=== PATIENT | female | born 1940 | race Hispanic/Latino ===

== ENCOUNTER 2018-03-10 13:54 | Emergency (ER) | payer OTHER ==
[~2018-03-10 13:54] MED LIST: ACEB200 PO; ACET1TAB12 PO; ALEN70TA47 PO; ASPI-1012 PO; ATOR40TA69 PO; CHLO50TA PO; DIGO125T87 PO; EZET10 PO; FAMO20TA8 PO; LEVO500T2 PO; LISI40TA4 PO; NAPR250T4 PO; NITR0.4T SL; OMEP20CA10 PO; SULF1TAB3 PO
[2018-03-10] MEDS ORDERED: ONDANSETRON HCL 4 MG/2 ML VIAL ONE (14:31)
[2018-03-10 14:32] LABS: EOSINOPHILS % (AUTO) 1.3 % (0.0-8.0); HEMATOCRIT 41.3 % (36-48); LYMPHOCYTES % (AUTO) 20.1 % (21.0-51.0); MEAN CORPUSCULAR HEMOGLOBIN 30.4 pg (27.0-33.0); MEAN CORPUSCULAR VOLUME 89.6 fL (79-99); MONOCYTES % (AUTO) 7.7 % (3.0-13.0); NEUTROPHILS % (AUTO) 69.9 % (40.0-77.0); PLATELET COUNT (AUTO) 194 K/uL (130-400); RED BLOOD CELL COUNT(AUTO) 4.62 MIL/uL (4.00-5.50); RED CELL DISTRIBUTION WIDTH 13.5 % (11.0-15.5); WHITE BLOOD COUNT (AUTO) 6.7 K/uL (4.8-10.8)
[2018-03-10 14:45] LABS: CREATININE 1.1 mg/dL (0.5-1.5); POTASSIUM 3.8 mmol/L (3.5-5.1)
[2018-03-10 14:54] LABS: AMYLASE 102 U/L (25-115); LIPASE 209 U/L (114-286)
[2018-03-10 14:57] LABS: B-TYPE NATRIURETIC PEPTIDE 21 pg/mL (0-100)
[2018-03-10 15:00] LABS: ALBUMIN 3.8 g/dL (3.5-5.0); BILIRUBIN,TOTAL 0.5 mg/dL (0.2-1.0); CREATINE KINASE MB 1.1 ng/mL (0.5-3.6); TOTAL PROTEIN, SERUM 7.1 g/dL (6.0-8.3)
== END 2018-03-10 16:50 | disposition home or self-care (01) ==
LOC: EDH 13:54
DX: I48.91 Unspecified atrial fibrillation (principal); I48.92 Unspecified atrial flutter; I25.10 Atherosclerotic heart disease of native coronary artery without angina pectoris; E78.5 Hyperlipidemia, unspecified; I10 Essential (primary) hypertension; Z88.6 Allergy status to analgesic agent; Z88.0 Allergy status to penicillin; Z95.0 Presence of cardiac pacemaker
CPT/HCPCS: 36415; 71045; 80053; 82150; 82550; 82553; 83690; 83880; 84484; 85025; 93005; 96374; 99285; J2405

== ENCOUNTER 2019-05-07 06:27 | Observation (INO) | payer OTHER ==
[~2019-05-07] VITALS: Ht 165.1 cm; Wt 56.2 kg
[~2019-05-07 06:27] MED LIST changes: -ACET1TAB12 PO; +ALEN70TA10 PO; -ALEN70TA47 PO; +CHLO25TA3 PO; -EZET10 PO; +EZET10TA13 PO; -LEVO500T2 PO; +LEVO5TAB13 PO; +LINA5TAB PO; -NAPR250T4 PO; +OMEP-50 PO; -OMEP20CA10 PO; +RANO500T2 PO; -SULF1TAB3 PO
[2019-05-07] MEDS ORDERED: NITROGLYCERIN 1GM/1 INCH PACKET TD ONE (06:31)
[2019-05-07 06:46] LABS: EOSINOPHILS % (AUTO) 1.6 % (0.0-8.0); LYMPHOCYTES % (AUTO) 20.8 % (21.0-51.0); MEAN CORPUSCULAR HEMOGLOBIN 30.9 pg (27.0-33.0); MEAN CORPUSCULAR HGB CONC 33.7 g/dL (32.0-36.0); MEAN CORPUSCULAR VOLUME 91.5 fL (79-99); MONOCYTES % (AUTO) 6.6 % (3.0-13.0); PLATELET COUNT (AUTO) 154 K/uL (130-400); RED BLOOD CELL COUNT(AUTO) 4.48 MIL/uL (4.00-5.50); RED CELL DISTRIBUTION WIDTH 12.9 % (11.0-15.5); WHITE BLOOD COUNT (AUTO) 8.4 K/uL (4.8-10.8)
[2019-05-07 06:56] LABS: POTASSIUM 4.4 mmol/L (3.5-5.1)
[2019-05-07 07:01] LABS: ALBUMIN 3.7 g/dL (3.5-5.0); BILIRUBIN,TOTAL 0.4 mg/dL (0.2-1.0); TOTAL PROTEIN, SERUM 7.3 g/dL (6.0-8.3)
[2019-05-07 07:02] LABS: INR 0.91 (0.85-1.15); PARTIAL THROMBOPLASTIN TIME 24.1 SEC (26.3-35.5); PROTHROMBIN TIME 9.6 SEC (9.6-11.6)
[2019-05-07] MEDS ORDERED: HYDRALAZINE HCL 20 MG/ML VIAL ONE (07:13)
[2019-05-07] MEDS ORDERED: METOPROLOL TARTRATE 25 MG TAB ONE (08:33)
[2019-05-07] MEDS ORDERED: ASPIRIN 325 MG TABLET ONE (08:33)
[2019-05-07 10:00] LABS: CREATINE KINASE, TOTAL 48 U/L (21-232); MYOGLOBIN 28 ng/mL (10-92); TROPONIN I < 0.04 ng/mL (0.00-0.06)
[2019-05-07] MEDS ORDERED: NITROGLYCERIN 0.4 MG SL TAB SL SCH (12:30)
[2019-05-07] MEDS ORDERED: SODIUM CHLORIDE 0.9% 10 ML VIAL IVP PRN (13:00)
[2019-05-07] MEDS ORDERED: ONDANSETRON HCL 4 MG/2 ML VIAL IVP PRN (13:00)
[2019-05-07 13:35] LABS: CREATINE KINASE, TOTAL 49 U/L (21-232); MYOGLOBIN 33 ng/mL (10-92); TROPONIN I < 0.04 ng/mL (0.00-0.06)
--- NOTE | 2019-05-07 14:33 | NUR ---
[facility] Sw met with pt and her Mars Marquez. Pt reports she is still independent of all ADLs, drives, no DME or in home care services. PCP is Dr Mobley and rx is Jonah. Plan [place] Addendum: 05/07/19 at 1442 by DANG HYLTON Amended: Links added.
[2019-05-07 15:35] VITALS: BP 150/64
[2019-05-07] MEDS: DIGOXIN 125 MCG TABLET PO SCH (16:49)
[2019-05-07 19:31] VITALS: BP 158/73
[2019-05-07] MEDS: RANOLAZINE 500 MG TAB.SR.12H PO SCH (20:47)
[2019-05-07] MEDS ORDERED: **HM** LEVOCETIRIZINE 5MG PO SCH (21:00)
[2019-05-07] MEDS ORDERED: ATORVASTATIN CALCIUM 40 MG TABLET PO SCH (21:00)
[2019-05-07 22:35] LABS: APPEARANCE,URINE Clear (CLEAR); BILIRUBIN,URINE Negative (NEGATIVE); COLOR,URINE Yellow (YELLOW); GLUCOSE, URINE (UA) TRACE mg/dL (NEGATIVE); KETONES,URINE Negative (NEGATIVE); LEUKOCYTE ESTERASE ,URINE Trace (NEGATIVE); NITRATE,URINE Negative (NEGATIVE); OCCULT BLOOD,URINE Negative (NEGATIVE); PH,URINE 8.5 (5.0-8.0); PROTEIN,URINE Negative (NEGATIVE)
[2019-05-07 22:52] LABS: BACTERIA,URINE None Seen /HPF (None Seen); RBC,URINE None Seen /HPF (0-1); SQUAMOUS EPITHELIAL CELL,UR Few /HPF (0-2); WBC,URINE None Seen /HPF (0-1)
[2019-05-07 23:28] VITALS: BP 115/59
[2019-05-08 04:00] VITALS: BP 109/52
[2019-05-08 08:00] VITALS: BP 123/81
[2019-05-08] MEDS: RANOLAZINE 500 MG TAB.SR.12H PO SCH (08:18)
[2019-05-08] MEDS ORDERED: ASPIRIN 325 MG TABLET PO SCH (09:00)
[2019-05-08] MEDS ORDERED: CHLORTHALIDONE 50 MG PO SCH (09:00)
[2019-05-08] MEDS ORDERED: EZETIMIBE 10 MG TAB PO SCH (09:00)
[2019-05-08] MEDS ORDERED: PANTOPRAZOLE SODIUM 40 MG TABLET.DR PO SCH (09:00)
[2019-05-08] MEDS ORDERED: LISINOPRIL 40 MG TABLET PO SCH (09:00)
[2019-05-08] MEDS ORDERED: ACEBUTOLOL 200 MG PO SCH (09:00)
[2019-05-08] MEDS ORDERED: FAMOTIDINE 20MG TAB 20 MG TAB PO SCH (09:00)
[2019-05-08] MEDS ORDERED: LINAGLIPTIN 5 MG TABLET PO SCH (09:00)
[2019-05-08] MEDS ORDERED: REGADENOSON 0.4 MG/5 ML PF SYG IVP SCH (10:15)
[2019-05-08 11:15] VITALS: BP 130/68
--- NOTE | 2019-05-08 15:50 | NUR ---
GENERAL MERCHANDISE SALESPERSON DR. REYNOSO IN TO SEE PATIENT AND DISCUSS RESULTS OF LEXISCAN. ORDERS RECEIVED FOR DISCHARGE AND MD ALSO MADE SOME MEDICATION CHANGES. PATIENT ALREADY HAS AN APPOINTMENT NEXT WEEK WITH DR. REYNOSO. NEW PRESCRIPTIONS PLACED IN DISCHARGE PACKET ALONG WITH ALL PRINTED INFORMATION AND MD INSTRUCTIONS. IV REMOVED WITH TIP INTACT. DIRECT PRESSURE APPLIED UNTIL BLEEDING CONTROLLED THEN SITE COVERED WITH GAUZE AND SECURED WITH TAPE. PENDING RIDE HOME.
[2019-05-08] MEDS ORDERED: ATOR20TA65 PO (15:56)
[2019-05-08 16:10] VITALS: BP 139/67
[2019-05-08] MEDS: DIGOXIN 125 MCG TABLET PO SCH (16:20)
[2019-05-14] MEDS ORDERED: ALENDRONATE SODIUM 35 MG TAB PO SCH (06:30)
== END 2019-05-08 17:21 | disposition home or self-care (01) ==
LOC: EDH 06:27 → EDHIP 07:10 → 4BH 15:13
PROVIDERS: ADMIT Internal Medicine Critical Care Medicine; ATTEND Internal Medicine Critical Care Medicine
DX: R07.2 Precordial pain (principal); I10 Essential (primary) hypertension; E11.9 Type 2 diabetes mellitus without complications; E78.5 Hyperlipidemia, unspecified; I48.2 Chronic atrial fibrillation; I25.10 Atherosclerotic heart disease of native coronary artery without angina pectoris; G89.29 Other chronic pain; I42.9 Cardiomyopathy, unspecified; Z95.1 Presence of aortocoronary bypass graft; Z86.73 Personal history of transient ischemic attack (TIA), and cerebral infarction without residual deficits; Z88.0 Allergy status to penicillin; Z88.5 Allergy status to narcotic agent; Z95.0 Presence of cardiac pacemaker
CPT/HCPCS: 36415; 70450; 71045; 78452; 80053; 81001; 82550 ×2; 83874 ×2; 84484 ×3; 85025; 85610; 85730; 93005 ×4; 93017; 96374; 99284; A9500 ×2; G0378 ×34; J0360; J2785

== ENCOUNTER → 2019-06-09 | Outpatient (CLI) | payer OTHER ==
[~2019-06-09] MED LIST changes: +ATOR20TA65 PO; -ATOR40TA69 PO; -CHLO50TA PO
== END | disposition home or self-care (01) ==
LOC: SHCH 07:49
PROVIDERS: ATTEND Internal Medicine Cardiovascular Disease
DX: I73.9 Peripheral vascular disease, unspecified (principal)
CPT/HCPCS: 93925

== ENCOUNTER 2019-08-05 05:30 | Day surgery (SDC) | payer OTHER ==
[2019-07-28 11:20] VITALS: BP 152/76
[2019-07-28 11:31] LABS: BASOPHILS % (AUTO) 0.7 % (0.0-5.0); EOSINOPHILS % (AUTO) 1.4 % (0.0-8.0); LYMPHOCYTES % (AUTO) 18.9 % (21.0-51.0); MEAN CORPUSCULAR HEMOGLOBIN 31.7 pg (27.0-33.0); MEAN CORPUSCULAR HGB CONC 34.4 g/dL (32.0-36.0); MEAN CORPUSCULAR VOLUME 92.3 fL (79-99); MONOCYTES % (AUTO) 8.3 % (3.0-13.0); NEUTROPHILS % (AUTO) 70.7 % (40.0-77.0); NUCLEATED RED BLOOD CELLS 0.1 % (0.0-0.19); PLATELET COUNT (AUTO) 168 K/uL (130-400); RED BLOOD CELL COUNT(AUTO) 4.33 MIL/uL (4.00-5.50); RED CELL DISTRIBUTION WIDTH 13.5 % (11.0-15.5)
[2019-07-28 11:34] LABS: CREATININE 1.1 mg/dL (0.5-1.5); POTASSIUM 3.7 mmol/L (3.5-5.1)
--- NOTE | 2019-07-28 11:50 | NUR ---
EKG MESSAGE LEFT WITH DR. LOZANO ON ABNORMAL EKG, PENDING CALL BACK
--- NOTE | 2019-07-28 12:49 | NUR ---
ekg as per dr. krystyna chávez to proceed with surgery, no orders given on abnormal ekg reported
[~2019-08-05] VITALS: Ht 152.4 cm; Wt 54.7 kg
[2019-08-05] VITALS (16 sets, daily range): BP systolic 125–161; BP diastolic 59–82
[~2019-08-05 05:30] MED LIST changes: +CHLO50TA PO; +ERGO500014 PO
[2019-08-05] MEDS ORDERED: SODIUM CHLORIDE 0.9% 1000ML 1,000 ML IV ONE (06:25)
[2019-08-05] MEDS ORDERED: CEFAZOLIN SODIUM 1 GM VIAL ONE (06:25)
[2019-08-05] MEDS ORDERED: CLINDAMYCIN 900 MG/D5% WATER 50 ML IV ONE (07:04)
[2019-08-05] MEDS ORDERED: LIDOCAINE HCL 2% 20ML ONE (07:22)
--- NOTE | 2019-08-05 07:25 | NUR ---
POTENTIAL FOR INFECTION: NO SHAVING NEEDED TO RT HAND ASSESSED PER HAYLEY DIANA, WIPED WITH ERICK: 2% CHLORHEXIDINE GLUCONATE CLOTH PATIENTS PRE-DOP SKIN PREP PER HAYLEY DIANA.
[2019-08-05] MEDS ORDERED: ONDANSETRON HCL 4 MG/2 ML VIAL ONE (07:36)
[2019-08-05] MEDS ORDERED: DEXAMETHASONE SOD PHOSPHATE 10MG/ML 1ML VIAL ONE (07:36)
[2019-08-05] MEDS ORDERED: PROPOFOL 10 MG/ML 20ML VIAL IV ONE (07:36)
[2019-08-05] MEDS ORDERED: MIDAZOLAM HCL 1 MG/ML 2ML VIAL ONE (07:36)
[2019-08-05] MEDS ORDERED: LIDOCAINE PF 2% 5ML ABBOJECT ONE (07:36)
[2019-08-05] MEDS ORDERED: FENTANYL CITRATE PF 50 MCG/1 ML 2ML VIAL ONE (07:37)
[2019-08-05] MEDS ORDERED: PHENYLEPHRINE HCL 10 MG/ML 1ML VIAL IV ONE (08:04)
--- NOTE | 2019-08-05 09:15 | NUR ---
POST-PROCEDURE RECEIVED FROM PACU S/P RIGHT CTR VIA STRETCHER TO DAY PT 4. AWAKE IN NO ACUTE DISTRESS. CONNECTED TO CONTINUOUS CARDIOPULMONARY MONITORING. DAVID WRAP TO RIGHT HAND CLEAN, DRY, AND INTACT. EDEMA PRESENT TO RIGHT HAND. HAND ELEVATED ON PILLOW. SIDE RAILS UP X2, BED IN LOWEST POSITION, AND CALL LIGHT W/IN REACH.
--- NOTE | 2019-08-05 09:45 | NUR ---
DISCHARGE DAY PT DISCHARGE INSTRUCTIONS, DR. GUY DISCHARGE INSTRUCTIONS, MED REC, AND PT SUMMARY REVIEWED BY MUKESH ALVAREZ IN [facility]. PT AND VERBALIZED UNDERSTANDING. SLING APPLIED TO RIGHT ARM. PT EDUCATED TO KEEP RIGHT ARM ELEVATED TO HELP WITH SWELLING. PT VERBALIZED UNDERSTANDING. OPPORTUNITY GIVEN TO ASK QUESTIONS. QUESTIONS ADDRESSED.
--- NOTE | 2019-08-05 10:05 | NUR ---
DISCHARGE DISCHARGED VIA W/C. AWAKE IN NO ACUTE DISTRESS.
== END 2019-08-05 10:05 | disposition home or self-care (01) ==
LOC: DAH 05:30
PROVIDERS: ATTEND Orthopaedic Surgery
DX: G56.01 Carpal tunnel syndrome, right upper limb (principal); E11.9 Type 2 diabetes mellitus without complications; I10 Essential (primary) hypertension; I25.10 Atherosclerotic heart disease of native coronary artery without angina pectoris; Z88.5 Allergy status to narcotic agent; Z88.0 Allergy status to penicillin; Z79.899 Other long term (current) drug therapy; Z90.49 Acquired absence of other specified parts of digestive tract; Z98.890 Other specified postprocedural states; Z90.710 Acquired absence of both cervix and uterus; Z79.82 Long term (current) use of aspirin; Z82.49 Family history of ischemic heart disease and other diseases of the circulatory system
CPT/HCPCS: 36415; 64721; 80048; 82948 ×2; 85025; 93005; A4215; A4221; A4222; A4223; A4649 ×2; A4663; A4930; A6260; J1100; J2001; J2250; J2370; J2405; J2704; J3010; J3490 ×2; J7030; J0690

== ENCOUNTER → 2019-11-10 | Outpatient (CLI) | payer OTHER ==
[~2019-11-10] MED LIST changes: +DIGO125T71 PO; -DIGO125T87 PO; -OMEP-50 PO; +OMEP20CA12 PO
== END | disposition home or self-care (01) ==
LOC: SHCH 13:01
PROVIDERS: ATTEND Internal Medicine Cardiovascular Disease
DX: R09.89 Other specified symptoms and signs involving the circulatory and respiratory systems (principal)
CPT/HCPCS: 93880

== ENCOUNTER 2020-02-19 15:40 | Emergency (ER) | payer OTHER ==
[2020-02-19] MEDS ORDERED: NITROGLYCERIN 1GM/1 INCH PACKET TD ONE (16:21)
[2020-02-19] MEDS ORDERED: HYOSCYAMINE SULFATE 0.125 MG TAB.SUBL SL ONE (16:45)
[2020-02-19] MEDS ORDERED: ONDANSETRON HCL 4 MG/2 ML VIAL ONE (16:45)
[2020-02-19 16:51] LABS: BASOPHILS % (AUTO) 0.7 % (0.0-5.0); EOSINOPHILS % (AUTO) 1.2 % (0.0-8.0); HEMATOCRIT 36.1 % (36-48); LYMPHOCYTES % (AUTO) 15.7 % (21.0-51.0); MEAN CORPUSCULAR HEMOGLOBIN 30.8 pg (27.0-33.0); MEAN CORPUSCULAR HGB CONC 34.1 g/dL (32.0-36.0); MEAN CORPUSCULAR VOLUME 90.5 fL (79-99); MONOCYTES % (AUTO) 10.2 % (3.0-13.0); NEUTROPHILS % (AUTO) 70.5 % (40.0-77.0); PLATELET COUNT (AUTO) 161 K/uL (130-400); RED BLOOD CELL COUNT(AUTO) 3.99 MIL/uL (4.00-5.50); WHITE BLOOD COUNT (AUTO) 5.8 K/uL (4.8-10.8)
[2020-02-19 17:03] LABS: CREATININE 1.3 mg/dL (0.5-1.5); POTASSIUM 3.6 mmol/L (3.5-5.1)
[2020-02-19 17:05] LABS: INR 0.97 (0.85-1.15); PARTIAL THROMBOPLASTIN TIME 26.9 SEC (26.3-35.5); PROTHROMBIN TIME 10.5 SEC (9.6-11.6)
[2020-02-19 17:07] LABS: ALBUMIN 3.9 g/dL (3.5-5.0); BILIRUBIN,TOTAL 0.5 mg/dL (0.2-1.0); TOTAL PROTEIN, SERUM 6.7 g/dL (6.0-8.3)
[2020-02-19 17:48] LABS: B-TYPE NATRIURETIC PEPTIDE 21 pg/mL (0-100)
== END 2020-02-19 20:39 | disposition home or self-care (01) ==
LOC: EDH 15:40
DX: R07.89 Other chest pain (principal); R10.13 Epigastric pain; R19.7 Diarrhea, unspecified; R00.2 Palpitations; E11.9 Type 2 diabetes mellitus without complications; I10 Essential (primary) hypertension; E78.5 Hyperlipidemia, unspecified; I25.2 Old myocardial infarction; I48.91 Unspecified atrial fibrillation; I25.10 Atherosclerotic heart disease of native coronary artery without angina pectoris; Z88.0 Allergy status to penicillin; Z88.6 Allergy status to analgesic agent; Z95.0 Presence of cardiac pacemaker; Z95.1 Presence of aortocoronary bypass graft; Z90.710 Acquired absence of both cervix and uterus; Z87.891 Personal history of nicotine dependence
CPT/HCPCS: 36415; 71045; 80053; 82550; 83690; 83880; 84484 ×2; 85025; 85610; 85730; 93005 ×3; 96374; 99285; J2405

== ENCOUNTER 2020-06-21 09:12 | Emergency (ER) | payer OTHER ==
[2020-06-21 10:22] LABS: BASOPHILS % (AUTO) 0.6 % (0.0-5.0); EOSINOPHILS % (AUTO) 1.2 % (0.0-8.0); HEMATOCRIT 40.8 % (36-48); LYMPHOCYTES % (AUTO) 14.5 % (21.0-51.0); MEAN CORPUSCULAR HEMOGLOBIN 31.6 pg (27.0-33.0); MEAN CORPUSCULAR HGB CONC 34.6 g/dL (32.0-36.0); MEAN CORPUSCULAR VOLUME 91.5 fL (79-99); MONOCYTES % (AUTO) 8.3 % (3.0-13.0); NEUTROPHILS % (AUTO) 74.6 % (40.0-77.0); PLATELET COUNT (AUTO) 180 K/uL (130-400); RED BLOOD CELL COUNT(AUTO) 4.46 MIL/uL (4.00-5.50); RED CELL DISTRIBUTION WIDTH 12.3 % (11.0-15.5); WHITE BLOOD COUNT (AUTO) 7.7 K/uL (4.8-10.8)
[2020-06-21 10:26] LABS: CREATININE 1.3 mg/dL (0.5-1.5); POTASSIUM 3.4 mmol/L (3.5-5.1)
[2020-06-21 10:28] LABS: INR 0.93 (0.85-1.15); PARTIAL THROMBOPLASTIN TIME 26.1 SEC (26.3-35.5); PROTHROMBIN TIME 10.1 SEC (9.6-11.6)
[2020-06-21 10:32] LABS: ALBUMIN 4.3 g/dL (3.5-5.0); BILIRUBIN,TOTAL 0.6 mg/dL (0.2-1.0); DIGOXIN 1.13 ng/mL (0.50-2.00); TOTAL PROTEIN, SERUM 7.6 g/dL (6.0-8.3)
[2020-06-21] MEDS ORDERED: NITROGLYCERIN 1GM/1 INCH PACKET TD ONE (15:05)
[2020-06-21] MEDS ORDERED: LORAZEPAM 1 MG TABLET ONE (15:05)
[2020-06-21] MEDS ORDERED: ISOSORBIDE MONO 30MG TAB SR PO ONE (15:53)
[2020-06-22] MEDS ORDERED: FENTANYL CITRATE PF 50 MCG/1 ML 2ML VIAL ONE (06:19)
[2020-06-22] MEDS ORDERED: ROCURONIUM 10MG/1ML SYR 10 MG/ML ML ONE (06:19)
[2020-06-22] MEDS ORDERED: LIDOCAINE PF 2% 5ML ABBOJECT ONE (06:19)
[2020-06-22] MEDS ORDERED: MIDAZOLAM HCL 1 MG/ML 2ML VIAL ONE (06:19)
[2020-06-22] MEDS ORDERED: PROPOFOL 10 MG/ML 20ML VIAL IV ONE ×2 (06:19→07:47)
[2020-06-22] MEDS ORDERED: ONDANSETRON HCL 4 MG/2 ML VIAL ONE (06:22)
[2020-06-22] MEDS ORDERED: GLYCOPYRROLATE 1 MG/5 ML SYRINGE ONE (07:23)
[2020-06-22] MEDS ORDERED: NEOSTIGMINE 5MG/5ML SYR IV ONE (07:23)
== END 2020-06-21 16:24 | disposition home or self-care (01) ==
LOC: EDH 09:12
DX: R07.89 Other chest pain (principal); I10 Essential (primary) hypertension; E78.5 Hyperlipidemia, unspecified; E11.9 Type 2 diabetes mellitus without complications; I25.10 Atherosclerotic heart disease of native coronary artery without angina pectoris; I48.91 Unspecified atrial fibrillation; I25.2 Old myocardial infarction; Z88.0 Allergy status to penicillin; Z88.6 Allergy status to analgesic agent; Z95.0 Presence of cardiac pacemaker; Z87.891 Personal history of nicotine dependence; Z90.710 Acquired absence of both cervix and uterus; Z90.49 Acquired absence of other specified parts of digestive tract; Z95.1 Presence of aortocoronary bypass graft
CPT/HCPCS: 36415; 71045; 80053; 80162; 82550; 84484; 85025; 85610; 85730; 93005; J2001; J2250; J2405; J2704; J2710; J3010; J3490

== ENCOUNTER 2020-07-16 05:07 | Observation (INO) | payer OTHER ==
[~2020-07-16] VITALS: Ht 154.9 cm; Wt 55.9 kg
[2020-07-16] VITALS (15 sets, daily range): BP systolic 103–206; BP diastolic 54–110
[~2020-07-16 05:07] MED LIST changes: -ALEN70TA10 PO; +ALEN70TA69 PO
[2020-07-16] MEDS ORDERED: ASPIRIN 325 MG TABLET ONE (05:09)
[2020-07-16 05:25] LABS: HEMATOCRIT 41.2 % (36-48); LYMPHOCYTES % (AUTO) 16.7 % (21.0-51.0); MEAN CORPUSCULAR HEMOGLOBIN 31.1 pg (27.0-33.0); MEAN CORPUSCULAR HGB CONC 34.2 g/dL (32.0-36.0); MEAN CORPUSCULAR VOLUME 90.9 fL (79-99); MONOCYTES % (AUTO) 7.9 % (3.0-13.0); NEUTROPHILS % (AUTO) 71.4 % (40.0-77.0); PLATELET COUNT (AUTO) 216 K/uL (130-400); RED BLOOD CELL COUNT(AUTO) 4.53 MIL/uL (4.00-5.50); RED CELL DISTRIBUTION WIDTH 12.2 % (11.0-15.5); WHITE BLOOD COUNT (AUTO) 8.4 K/uL (4.8-10.8)
[2020-07-16 05:38] LABS: INR 0.91 (0.85-1.15); PARTIAL THROMBOPLASTIN TIME 26.7 SEC (26.3-35.5); PROTHROMBIN TIME 9.9 SEC (9.6-11.6)
[2020-07-16 05:43] LABS: ALBUMIN 4.4 g/dL (3.5-5.0); BILIRUBIN,TOTAL 0.6 mg/dL (0.2-1.0); CREATININE 1.3 mg/dL (0.5-1.5); POTASSIUM 3.5 mmol/L (3.5-5.1); TOTAL PROTEIN, SERUM 7.8 g/dL (6.0-8.3)
[2020-07-16] MEDS ORDERED: NITROGLYCERIN 0.4 MG SL TAB SL ONE (06:21)
[2020-07-16] MEDS ORDERED: HYDRALAZINE HCL 20 MG/ML VIAL IV PRN (07:30)
[2020-07-16] MEDS ORDERED: LACTULOSE 20 GM/30 ML UDCUP PO PRN (07:30)
[2020-07-16] MEDS ORDERED: DEXTROSE 50%-WATER 50 ML DISP.SYRIN IV PRN (07:30)
[2020-07-16] MEDS ORDERED: LABETALOL 20 MG/4 ML DISP.SYRIN IV PRN (07:30)
[2020-07-16] MEDS ORDERED: ACETAMINOPHEN 325 MG TAB PO PRN (07:30)
[2020-07-16] MEDS ORDERED: ONDANSETRON HCL 4 MG/2 ML VIAL IVP PRN (07:30)
[2020-07-16] MEDS: INSULIN HUMULIN R 100 UNIT/ML 3ML SQ SCH ×4 (07:30→20:20)
[2020-07-16] MEDS ORDERED: GLUCAGON 1MG KIT 1 MG ML IM PRN (07:30)
[2020-07-16] MEDS ORDERED: LOPERAMIDE 1 MG/7.5 ML UDCUP PO PRN (07:30)
[2020-07-16] MEDS ORDERED: ENOXAPARIN SODIUM 30 MG/0.3 ML SQ ONE (08:45)
[2020-07-16] MEDS ORDERED: FAMOTIDINE/PF 20 MG/2 ML VIAL IV ONE (08:45)
[2020-07-16] MEDS ORDERED: ASPIRIN 81MG TAB.CHEW PO SCH (09:00)
[2020-07-16] MEDS: FAMOTIDINE 20MG TAB 20 MG TAB PO SCH ×2 (09:00→20:06)
[2020-07-16] MEDS: ENOXAPARIN SODIUM 30 MG/0.3 ML SQ SCH (09:00)
--- NOTE | 2020-07-16 10:00 | NUR ---
ADMISSION RECEIVED PT FROM ER, AMBULATING FROM [facility], GAIT STEADY AND STRONG WITH STAND BY ASSIST, A&OX3, CALM COOPERATIVE AND DOES NOT APPEAR TO BE IN ANY DISTRESS NOR ANY NEURO DEFICITS PRESENT. PT DENIES SOB, NAUSEA BUT DOES C/O INTERMITTENT CHEST PAIN. CALL LIGHT WITHIN REACH, FAMILY AT BEDSIDE.
[2020-07-16] MEDS ORDERED: ACEB400C PO (10:08)
[2020-07-16] MEDS ORDERED: ISOS30TA6 PO (10:08)
[2020-07-16] MEDS ORDERED: ALEN70TA69 PO (10:08)
[2020-07-16] MEDS ORDERED: CHLO25TA3 PO (10:08)
[2020-07-16] MEDS ORDERED: LINA5TAB PO (10:08)
[2020-07-16] MEDS ORDERED: NITR0.4T50 SL (10:08)
[2020-07-16] MEDS ORDERED: RANO500T6 PO (10:08)
[2020-07-16] MEDS ORDERED: EZET10TA48 PO (10:08)
[2020-07-16] MEDS ORDERED: CHLO50TA PO (10:08)
[2020-07-16] MEDS ORDERED: ATOR10 PO (10:08)
[2020-07-16] MEDS ORDERED: DIGO125T71 PO (10:08)
[2020-07-16] MEDS ORDERED: ASPI-1026 PO (10:08)
[2020-07-16] MEDS ORDERED: LEVO5TAB13 PO (10:08)
[2020-07-16] MEDS ORDERED: PANT40TA54 PO (10:08)
[2020-07-16] MEDS ORDERED: LISI40TA4 PO (10:08)
[2020-07-16] MEDS: LISINOPRIL 40 MG TABLET PO SCH (12:45)
[2020-07-16] MEDS: ISOSORBIDE MONO 60 MG TAB.SR PO SCH (12:45)
[2020-07-16] MEDS ORDERED: PHARMACY COMMUNICATION MISC SCH (12:45)
[2020-07-16] MEDS: AMLODIPINE BESYLATE 5 MG TAB PO SCH (12:45)
[2020-07-16] MEDS: EZETIMIBE 10 MG TAB PO SCH (12:45)
[2020-07-16] MEDS: RANOLAZINE 500 MG TAB.SR.12H PO SCH ×2 (12:45→20:06)
[2020-07-16] MEDS ORDERED: DIGOXIN 250 MCG TABLET PO SCH (12:45)
[2020-07-16] MEDS: ACEBUTOLOL 400 MG PO SCH ×2 (13:00→20:06)
[2020-07-16] MEDS: ATORVASTATIN CALCIUM 20 MG TABLET PO SCH (20:06)
[2020-07-17] VITALS (7 sets, daily range): BP systolic 117–145; BP diastolic 59–74
[2020-07-17 05:05] LABS: BASOPHILS % (AUTO) 0.7 % (0.0-5.0); EOSINOPHILS % (AUTO) 1.9 % (0.0-8.0); HEMATOCRIT 38.4 % (36-48); LYMPHOCYTES % (AUTO) 21.5 % (21.0-51.0); MEAN CORPUSCULAR HGB CONC 34.1 g/dL (32.0-36.0); MEAN CORPUSCULAR VOLUME 90.8 fL (79-99); MONOCYTES % (AUTO) 8.6 % (3.0-13.0); NEUTROPHILS % (AUTO) 66.3 % (40.0-77.0); PLATELET COUNT (AUTO) 211 K/uL (130-400); RED BLOOD CELL COUNT(AUTO) 4.23 MIL/uL (4.00-5.50); RED CELL DISTRIBUTION WIDTH 12.4 % (11.0-15.5); WHITE BLOOD COUNT (AUTO) 6.8 K/uL (4.8-10.8)
[2020-07-17 05:18] LABS: ALBUMIN 3.8 g/dL (3.5-5.0); BILIRUBIN,TOTAL 0.6 mg/dL (0.2-1.0); CREATININE 1.3 mg/dL (0.5-1.5); MAGNESIUM 1.7 mg/dL (1.80-2.40); PHOSPHORUS 3.9 mg/dL (2.5-4.9); POTASSIUM 3.4 mmol/L (3.5-5.1); TOTAL PROTEIN, SERUM 7.1 g/dL (6.0-8.3)
[2020-07-17] MEDS ORDERED: CHLORTHALIDONE 50 MG PO SCH (06:30)
[2020-07-17] MEDS: INSULIN HUMULIN R 100 UNIT/ML 3ML SQ SCH ×4 (06:34→21:00)
[2020-07-17] MEDS: MAGNESIUM 2GM PREMIX 50ML 50 ML IV PRN (06:42)
--- NOTE | 2020-07-17 08:00 | NUR ---
PT AAO X3 REVIEW PLAN OF CARE ,DENIES ANY CHEST PAIN , NPO PENDING A STRESS TEST. REVIEW FALL RISK , AND CALL LIGHT IN REACH, ,
[2020-07-17] MEDS: AMLODIPINE BESYLATE 5 MG TAB PO SCH (08:24)
[2020-07-17] MEDS: RANOLAZINE 500 MG TAB.SR.12H PO SCH ×2 (08:24→21:23)
[2020-07-17] MEDS: FAMOTIDINE 20MG TAB 20 MG TAB PO SCH ×2 (08:24→21:23)
[2020-07-17] MEDS: ASPIRIN 325MG EC TAB 325 MG TABLET.DR PO SCH (08:24)
[2020-07-17] MEDS: LISINOPRIL 40 MG TABLET PO SCH (08:24)
[2020-07-17] MEDS: DIGOXIN 125 MCG TABLET PO SCH (08:24)
[2020-07-17] MEDS: EZETIMIBE 10 MG TAB PO SCH (08:24)
[2020-07-17] MEDS: ISOSORBIDE MONO 60 MG TAB.SR PO SCH (08:25)
[2020-07-17] MEDS ORDERED: ASPIRIN 81MG TAB.CHEW PO SCH (09:00)
[2020-07-17] MEDS: ACEBUTOLOL 400 MG PO SCH ×2 (09:00→21:00)
--- NOTE | 2020-07-17 10:00 | NUR ---
STAFF HERE TO TAKE PT FOR STRESS TEST .
[2020-07-17] MEDS ORDERED: REGADENOSON 0.4 MG/5 ML PF SYG IVP SCH (10:30)
[2020-07-17] MEDS ORDERED: LIDOCAINE HCL-MPF 1% 2ML VIAL IV PRN (10:45)
[2020-07-17] MEDS ORDERED: POTASSIUM CHLORIDE 20MEQ/100ML 100 ML IV PRN (10:45)
[2020-07-17] MEDS ORDERED: POTASSIUM CHLORIDE 10% ELIXIR 20 MEQ/15 ML UDCUP PO PRN (10:45)
[2020-07-17] MEDS: ENOXAPARIN SODIUM 30 MG/0.3 ML SQ SCH (11:21)
[2020-07-17] MEDS: POTASSIUM CHLORIDE 20 MEQ ERTAB PO PRN ×3 (11:22→19:26)
--- NOTE | 2020-07-17 12:00 | NUR ---
PT . DOWN STAIRS FOR A STRESS TEST . Addendum: 07/17/20 at 1430 by ZAC OLMSTEAD RN RN Amended: Links added.
--- NOTE | 2020-07-17 14:54 | NUR ---
PT BACK FROM STRESS TEST . ORDER . DIET FOR PT. DENIES ANY CHEST PAIN. AND CALL LIGHT IN REACH. .
--- NOTE | 2020-07-17 20:13 | NUR ---
LASHONDAD CARLOS [place] np re orders to okay to dc from cardiology,pt states she wants to leave in am.
--- NOTE | 2020-07-17 20:15 | NUR ---
TURNING AND BEADING MACHINE OPERATOR S Ambar TURNING AND BEADING MACHINE OPERATOR called back,informed re Dr Jose Luis fermin,he said he's not planning to discharge patient tonight.
[2020-07-17] MEDS: ATORVASTATIN CALCIUM 20 MG TABLET PO SCH (21:23)
[2020-07-18 04:03] VITALS: BP 122/64
[2020-07-18 05:13] LABS: MAGNESIUM 1.9 mg/dL (1.80-2.40)
[2020-07-18] MEDS: INSULIN HUMULIN R 100 UNIT/ML 3ML SQ SCH ×2 (06:00→11:26)
[2020-07-18] MEDS: MAGNESIUM 2GM PREMIX 50ML 50 ML IV PRN (06:03)
[2020-07-18 08:00] VITALS: BP 129/62
[2020-07-18] MEDS ORDERED: **HM** CHLORTHALIDONE 25MG PO SCH (09:00)
[2020-07-18] MEDS: ENOXAPARIN SODIUM 30 MG/0.3 ML SQ SCH (09:20)
[2020-07-18] MEDS: RANOLAZINE 500 MG TAB.SR.12H PO SCH (09:21)
[2020-07-18] MEDS: ISOSORBIDE MONO 60 MG TAB.SR PO SCH (09:21)
[2020-07-18] MEDS: EZETIMIBE 10 MG TAB PO SCH (09:21)
[2020-07-18] MEDS: DIGOXIN 125 MCG TABLET PO SCH (09:21)
[2020-07-18] MEDS: ASPIRIN 325MG EC TAB 325 MG TABLET.DR PO SCH (09:22)
[2020-07-18] MEDS: LISINOPRIL 40 MG TABLET PO SCH (09:22)
[2020-07-18] MEDS: FAMOTIDINE 20MG TAB 20 MG TAB PO SCH (09:22)
[2020-07-18] MEDS: AMLODIPINE BESYLATE 5 MG TAB PO SCH (09:22)
[2020-07-18] MEDS: ACEBUTOLOL 400 MG PO SCH (09:32)
[2020-07-18 11:52] VITALS: BP 146/80
[2020-08-06] MEDS ORDERED: LOSA100T58 PO (10:43)
[2020-08-06] MEDS ORDERED: DIGO125T71 PO (10:44)
[2020-08-08] MEDS ORDERED: AMLO5TAB4 PO (14:47)
[2020-08-08] MEDS ORDERED: SODI100037 PO (14:47)
[2020-08-12] MEDS ORDERED: NITR100C4 PO (12:35)
== END 2020-07-18 15:00 | disposition home or self-care (01) ==
LOC: EDH 05:07 → EDHIP 07:23 → 4BH 09:29
PROVIDERS: ADMIT Internal Medicine Pulmonary Disease; ATTEND Internal Medicine Pulmonary Disease
DX: I16.1 Hypertensive emergency (principal); I25.119 Atherosclerotic heart disease of native coronary artery with unspecified angina pectoris; I25.5 Ischemic cardiomyopathy; I48.0 Paroxysmal atrial fibrillation; E78.5 Hyperlipidemia, unspecified; Z90.49 Acquired absence of other specified parts of digestive tract; Z90.710 Acquired absence of both cervix and uterus; Z95.0 Presence of cardiac pacemaker; Z88.0 Allergy status to penicillin; Z88.5 Allergy status to narcotic agent; Z79.82 Long term (current) use of aspirin; Z79.899 Other long term (current) drug therapy; Z95.1 Presence of aortocoronary bypass graft
CPT/HCPCS: 36415 ×3; 71045 ×2; 78452; 80053 ×2; 80162; 82550 ×4; 82948 ×6; 83735 ×2; 83880; 84100; 84132; 84484 ×4; 85025 ×2; 85610; 85730; 93005; 93017; 96365; 96366 ×2; 96372 ×2; 99285; A9500 ×2; G0378 ×18; J1650 ×3; J2785; J3475 ×2; J3490; 96374

== ENCOUNTER → 2020-12-22 | Outpatient (CLI) | payer OTHER ==
[~2020-12-22] MED LIST changes: -ACEB200 PO; +ACEB400C PO; -ALEN70TA69 PO; +ALEN70TA80 PO; +AMLO5TAB4 PO; -ASPI-1012 PO; +ASPI-1026 PO; +ATOR10 PO; -ATOR20TA65 PO; -DIGO125T71 PO; -ERGO500014 PO; -EZET10TA13 PO; +EZET10TA48 PO; -FAMO20TA8 PO; +IBUP-2077 PO; +ISOS30TA92 PO; +LEVO500T89 PO; -LISI40TA4 PO; +LOSA100T58 PO; -NITR0.4T SL; +NITR0.4T50 SL; -OMEP20CA12 PO; +PANT40TA54 PO; -RANO500T2 PO; +RANO500T6 PO; +SODI100037 PO
== END | disposition home or self-care (01) ==
LOC: RAH 12:11
PROVIDERS: ATTEND Family Medicine
DX: M19.041 Primary osteoarthritis, right hand (principal); L03.011 Cellulitis of right finger; M79.89 Other specified soft tissue disorders
CPT/HCPCS: 73200

== ENCOUNTER → 2021-04-11 | Outpatient (CLI) | payer OTHER | END | disposition home or self-care (01) | LOC: SHCH 09:45 | PROVIDERS: ATTEND Internal Medicine Cardiovascular Disease | DX: I70.219 Atherosclerosis of native arteries of extremities with intermittent claudication, unspecified extremity (principal) | CPT/HCPCS: 93925 ==

== ENCOUNTER → 2021-04-23 | Outpatient (CLI) | payer OTHER | END | disposition home or self-care (01) | LOC: RAH 07:35 | PROVIDERS: ATTEND Internal Medicine Cardiovascular Disease | DX: I70.8 Atherosclerosis of other arteries (principal); Q27.1 Congenital renal artery stenosis | CPT/HCPCS: 76770; 93975 ==

== ENCOUNTER 2022-05-01 11:26 | Observation (INO) | payer OTHER ==
[~2022-05-01] VITALS: Ht 154.9 cm; Wt 64.7 kg
[~2022-05-01 11:26] MED LIST changes: +LEVO-70 PO; -LEVO500T89 PO
[2022-05-01 11:48] LABS: HEMATOCRIT 40.8 % (36-48); MEAN CORPUSCULAR HGB CONC 33.6 g/dL (32.0-36.0); MEAN CORPUSCULAR VOLUME 92.3 fL (79-99); PLATELET COUNT (AUTO) 183 K/uL (130-400); RED BLOOD CELL COUNT(AUTO) 4.42 MIL/uL (4.00-5.50); RED CELL DISTRIBUTION WIDTH 13.7 % (11.0-15.5); WHITE BLOOD COUNT (AUTO) 7.7 K/uL (4.8-10.8)
[2022-05-01] MEDS ORDERED: 0.9% NACL 250ML 250 ML IV ONE (12:00)
[2022-05-01 12:05] LABS: CREATININE 1.2 mg/dL (0.5-1.5); POTASSIUM 4.2 mmol/L (3.5-5.1)
[2022-05-01 12:13] LABS: B-TYPE NATRIURETIC PEPTIDE 89 pg/mL (0-100)
[2022-05-01 12:15] LABS: ALBUMIN 4.5 g/dL (3.5-5.0); TOTAL PROTEIN, SERUM 7.9 g/dL (6.0-8.3)
[2022-05-01] MEDS ORDERED: GLUCAGON 1MG KIT 1 MG ML IM PRN (12:30)
[2022-05-01 12:36] LABS: EOSINOPHILS % (MANUAL) 1 % (1-6); LYMPHOCYTES % (MANUAL) 20 % (22-44); MONOCYTES % (MANUAL) 4 % (2-9); REACTIVE LYMPHOCYTES 7 % (0-0); SEGMENTED NEUTROPHILS % 68 % (40-70)
[2022-05-01 12:37] LABS: MAN.DIFF COMMENT-IMPRESSION MANUAL DIFFERENTIAL
[2022-05-01] MEDS: DEXTROSE 50%-WATER 50 ML DISP.SYRIN IV PRN ×3 (12:41→17:17)
[2022-05-01] MEDS ORDERED: ACETAMINOPHEN 325 MG TAB PO PRN (16:30)
[2022-05-01] MEDS ORDERED: DEXTROSE 10%-WATER 1,000 ML IV SCH (16:30)
[2022-05-01] MEDS ORDERED: LABETALOL 20MG SYG IV PRN (16:30)
[2022-05-01] MEDS ORDERED: ONDANSETRON 4MG INJ IVP PRN (16:30)
[2022-05-01] MEDS ORDERED: LACTULOSE 20 GM/30 ML UDCUP PO PRN (16:30)
[2022-05-01] MEDS ORDERED: ALBUTEROL 0.083% 2.5 MG/3 ML INH IH PRN (16:30)
[2022-05-01] MEDS ORDERED: HYDRALAZINE 20MG/ML VIAL IV PRN (16:30)
[2022-05-01 16:59] LABS: APPEARANCE,URINE CLEAR (CLEAR); BILIRUBIN,URINE NEGATIVE (NEGATIVE); COLOR,URINE YELLOW (YELLOW); GLUCOSE, URINE (UA) 250 mg/dL (NEGATIVE); KETONES,URINE NEGATIVE (NEGATIVE); LEUKOCYTE ESTERASE ,URINE MODERATE (NEGATIVE); NITRATE,URINE NEGATIVE (NEGATIVE); OCCULT BLOOD,URINE NEGATIVE (NEGATIVE); PROTEIN,URINE NEGATIVE (NEGATIVE); UROBILINOGEN,URINE 0.2 mg/dL (0.2-1.0)
[2022-05-01 17:09] LABS: BACTERIA,URINE Rare /HPF (None Seen); RBC,URINE 0-1 /HPF (0-1)
[2022-05-01 17:10] LABS: SQUAMOUS EPITHELIAL CELL,UR Few /HPF (0-2)
[2022-05-01] MEDS: DEXTROSE 5 % AND 0.9 % NACL 1,000 ML IV SCH (18:09)
[2022-05-01] MEDS ORDERED: LEVO5TAB29 PO (20:19)
[2022-05-01] MEDS ORDERED: FURO20TA4 PO (20:19)
[2022-05-01] MEDS ORDERED: PANT40TA54 PO (20:19)
[2022-05-01] MEDS ORDERED: ATOR10 PO (20:19)
[2022-05-01] MEDS ORDERED: ACEB400C PO (20:19)
[2022-05-01] MEDS ORDERED: RANO500T6 PO (20:19)
[2022-05-01] MEDS ORDERED: ISOS30TA92 PO (20:19)
[2022-05-01] MEDS ORDERED: LOSA100T58 PO (20:19)
[2022-05-01] MEDS ORDERED: NITR0.4T50 SL (20:19)
[2022-05-01] MEDS ORDERED: LINA5TAB PO (20:19)
[2022-05-01] MEDS ORDERED: EZET10TA48 PO (20:19)
[2022-05-01] MEDS ORDERED: AMLO2.5T4 PO (20:19)
[2022-05-01 20:50] VITALS: BP 116/84
[2022-05-01 23:51] VITALS: BP 139/64
[2022-05-02 04:00] VITALS: BP 137/64
[2022-05-02 04:56] LABS: BASOPHILS % (AUTO) 0.6 % (0.0-5.0); EOSINOPHILS % (AUTO) 1.5 % (0.0-8.0); HEMATOCRIT 37.3 % (36-48); LYMPHOCYTES % (AUTO) 18.2 % (21.0-51.0); MEAN CORPUSCULAR HEMOGLOBIN 30.8 pg (27.0-33.0); MEAN CORPUSCULAR VOLUME 93.3 fL (79-99); NEUTROPHILS % (AUTO) 68.1 % (40.0-77.0); PLATELET COUNT (AUTO) 153 K/uL (130-400); RED CELL DISTRIBUTION WIDTH 13.9 % (11.0-15.5); WHITE BLOOD COUNT (AUTO) 7.2 K/uL (4.8-10.8)
[2022-05-02 05:19] LABS: CREATININE 0.9 mg/dL (0.5-1.5); MAGNESIUM 2.1 mg/dL (1.80-2.40); PHOSPHORUS 2.7 mg/dL (2.5-4.9); POTASSIUM 4.1 mmol/L (3.5-5.1); THYROID STIMULATING HORMONE 2.5 uIU/mL (0.36-3.74)
[2022-05-02] MEDS: DEXTROSE 5 % AND 0.9 % NACL 1,000 ML IV SCH (05:30)
[2022-05-02 07:16] VITALS: BP 151/60
[2022-05-02] MEDS ORDERED: LEVOFLOXACIN 500 MG/D5W 100 ML 100 ML IV SCH (08:00)
[2022-05-02] MEDS: PANTOPRAZOLE 40 MG TAB DR PO SCH (08:25)
[2022-05-02] MEDS: ENOXAPARIN SODIUM 30 MG/0.3 ML SQ SCH (08:26)
[2022-05-02 11:51] VITALS: BP 145/68
[2022-05-02 16:00] VITALS: BP 149/70
[2022-05-02 20:00] VITALS: BP 150/71
[2022-05-02] MEDS: RANOLAZINE 500 MG TAB.SR.12H PO SCH (20:40)
[2022-05-02] MEDS: ACEBUTOLOL HCL 400 MG PO SCH (20:49)
[2022-05-02] MEDS ORDERED: ATORVASTATIN 20 MG TABLET PO SCH (21:00)
[2022-05-02] MEDS ORDERED: CETIRIZINE HCL 5 MG TABLET PO SCH (21:00)
[2022-05-03 00:37] VITALS: BP 159/64
[2022-05-03 04:47] VITALS: BP 134/62
[2022-05-03 05:20] LABS: BASOPHILS % (AUTO) 0.7 % (0.0-5.0); EOSINOPHILS % (AUTO) 2.9 % (0.0-8.0); HEMATOCRIT 37.2 % (36-48); LYMPHOCYTES % (AUTO) 20.3 % (21.0-51.0); MEAN CORPUSCULAR HEMOGLOBIN 30.8 pg (27.0-33.0); MEAN CORPUSCULAR HGB CONC 33.1 g/dL (32.0-36.0); MONOCYTES % (AUTO) 11.2 % (3.0-13.0); NEUTROPHILS % (AUTO) 63.9 % (40.0-77.0); PLATELET COUNT (AUTO) 149 K/uL (130-400)
[2022-05-03 05:41] LABS: ALBUMIN 3.3 g/dL (3.5-5.0); CREATININE 1.1 mg/dL (0.5-1.5); POTASSIUM 4.2 mmol/L (3.5-5.1); TOTAL PROTEIN, SERUM 6.2 g/dL (6.0-8.3)
[2022-05-03 07:15] VITALS: BP 132/60
[2022-05-03] MEDS ORDERED: LEVOFLOXACIN 250 MG/D5W 50ML 50 ML IVPB SCH (09:00)
[2022-05-03] MEDS ORDERED: ISOSORBIDE MONO 30MG SR TAB PO SCH (09:00)
[2022-05-03] MEDS ORDERED: EZETIMIBE 10 MG TAB PO SCH (09:00)
[2022-05-03] MEDS ORDERED: AMLODIPINE 2.5 MG TAB PO SCH (09:00)
[2022-05-03] MEDS ORDERED: FUROSEMIDE 20 MG TABLET PO SCH (09:00)
[2022-05-03] MEDS ORDERED: LOSARTAN 100 MG TABLET PO SCH (09:00)
[2022-05-03] MEDS: ACEBUTOLOL HCL 400 MG PO SCH (09:00)
[2022-05-03] MEDS: PANTOPRAZOLE 40 MG TAB DR PO SCH (09:29)
[2022-05-03] MEDS: RANOLAZINE 500 MG TAB.SR.12H PO SCH (09:31)
[2022-05-03] MEDS: ENOXAPARIN SODIUM 30 MG/0.3 ML SQ SCH (09:32)
[2022-05-03] MEDS ORDERED: LEVO-70 PO (11:12)
[2022-05-03 12:10] VITALS: BP 133/90
== END 2022-05-03 15:15 | disposition home or self-care (01) ==
LOC: EDH 11:26 → EDHIP 16:05 → 3BH 20:47
PROVIDERS: ADMIT Internal Medicine Critical Care Medicine; ATTEND Internal Medicine Critical Care Medicine
DX: T50.901A Poisoning by unspecified drugs, medicaments and biological substances, accidental (unintentional), initial encounter (principal); E11.65 Type 2 diabetes mellitus with hyperglycemia; I11.0 Hypertensive heart disease with heart failure; I50.9 Heart failure, unspecified; N39.0 Urinary tract infection, site not specified; I25.10 Atherosclerotic heart disease of native coronary artery without angina pectoris; M81.0 Age-related osteoporosis without current pathological fracture; K21.9 Gastro-esophageal reflux disease without esophagitis; E78.00 Pure hypercholesterolemia, unspecified; E78.5 Hyperlipidemia, unspecified; Z79.84 Long term (current) use of oral hypoglycemic drugs; Z88.0 Allergy status to penicillin; Z90.710 Acquired absence of both cervix and uterus; Z95.1 Presence of aortocoronary bypass graft; Z95.5 Presence of coronary angioplasty implant and graft; Z79.899 Other long term (current) drug therapy
CPT/HCPCS: 96376; 96361 ×2; 96375; 99285; 82550; 84484; 80053 ×2; 83880; 85025 ×3; 87088; 82948 ×34; 83605; 81001; 36415 ×3; 71045; 93005; 96372 ×2; 96365; 96366; 84443; 83735; 84100; 80048; G0378 ×47; J7070 ×4; J7042; J1956 ×2; J1650 ×2; J3490

== ENCOUNTER 2022-05-08 15:29 | Observation (INO) | payer OTHER ==
[~2022-05-08] VITALS: Ht 154.9 cm; Wt 63.3 kg
[~2022-05-08 15:29] MED LIST changes: -ALEN70TA80 PO; +AMLO2.5T4 PO; -AMLO5TAB4 PO; -ASPI-1026 PO; -CHLO25TA3 PO; -CHLO50TA PO; +FURO20TA4 PO; -IBUP-2077 PO; -LEVO5TAB13 PO; +LEVO5TAB29 PO; -LINA5TAB PO; -SODI100037 PO
[2022-05-08 15:49] LABS: BASOPHILS % (AUTO) 0.6 % (0.0-5.0); EOSINOPHILS % (AUTO) 0.4 % (0.0-8.0); HEMATOCRIT 39.5 % (36-48); LYMPHOCYTES % (AUTO) 14.1 % (21.0-51.0); MEAN CORPUSCULAR HEMOGLOBIN 30.6 pg (27.0-33.0); MEAN CORPUSCULAR HGB CONC 33.4 g/dL (32.0-36.0); MEAN CORPUSCULAR VOLUME 91.4 fL (79-99); NEUTROPHILS % (AUTO) 75.4 % (40.0-77.0); PLATELET COUNT (AUTO) 179 K/uL (130-400); RED BLOOD CELL COUNT(AUTO) 4.32 MIL/uL (4.00-5.50); RED CELL DISTRIBUTION WIDTH 13.9 % (11.0-15.5); WHITE BLOOD COUNT (AUTO) 7.9 K/uL (4.8-10.8)
[2022-05-08 16:03] LABS: INR 0.94 (0.85-1.15); PROTHROMBIN TIME 10.3 SEC (9.6-11.6)
[2022-05-08 16:05] LABS: PARTIAL THROMBOPLASTIN TIME 24.8 SEC (26.3-35.5)
[2022-05-08 16:06] LABS: CREATININE 1.5 mg/dL (0.5-1.5); POTASSIUM 3.7 mmol/L (3.5-5.1)
[2022-05-08 16:08] LABS: B-TYPE NATRIURETIC PEPTIDE 252 pg/mL (0-100)
[2022-05-08 16:11] LABS: ALBUMIN 4.2 g/dL (3.5-5.0); MAGNESIUM 2.1 mg/dL (1.80-2.40); TOTAL PROTEIN, SERUM 7.6 g/dL (6.0-8.3)
[2022-05-08] MEDS ORDERED: LINA5TAB PO (16:23)
[2022-05-08] MEDS ORDERED: FOLI0.8T22 PO (16:25)
[2022-05-08] MEDS ORDERED: ASPI-1026 PO (16:28)
[2022-05-08] MEDS ORDERED: AMLO-257 PO (16:29)
[2022-05-08] MEDS ORDERED: ALEN70TA80 PO (16:31)
[2022-05-08] MEDS ORDERED: MORPHINE 2 MG SYG IVP PRN (17:30)
[2022-05-08] MEDS ORDERED: ACETAMINOPHEN 325 MG TAB PO PRN (17:30)
[2022-05-08] MEDS ORDERED: HYDRALAZINE 20MG/ML VIAL IV PRN (17:30)
[2022-05-08] MEDS ORDERED: ONDANSETRON 4MG INJ IVP PRN (17:30)
[2022-05-08] MEDS ORDERED: CLONIDINE HCL 0.1 MG TABLET PO PRN (17:30)
[2022-05-08] MEDS ORDERED: LACTULOSE 20 GM/30 ML UDCUP PO PRN (17:30)
[2022-05-08] MEDS ORDERED: ACETAMINOPHEN 650 MG SUPPOSITORY RC PRN (17:30)
[2022-05-08] MEDS ORDERED: ASPIRIN 325MG TAB PO ONE (17:30)
[2022-05-08] MEDS: 0.9%NACL 1000ML 1,000 ML IV SCH (17:53)
[2022-05-08 19:36] VITALS: BP 143/72
[2022-05-08 19:39] VITALS: BP 147/85
[2022-05-08 19:44] VITALS: BP 151/79
[2022-05-08 20:33] LABS: APPEARANCE,URINE CLEAR (CLEAR); BILIRUBIN,URINE NEGATIVE (NEGATIVE); COLOR,URINE YELLOW (YELLOW); GLUCOSE, URINE (UA) NEGATIVE (NEGATIVE); KETONES,URINE NEGATIVE (NEGATIVE); LEUKOCYTE ESTERASE ,URINE NEGATIVE (NEGATIVE); NITRATE,URINE NEGATIVE (NEGATIVE); OCCULT BLOOD,URINE NEGATIVE (NEGATIVE); PROTEIN,URINE NEGATIVE (NEGATIVE); UROBILINOGEN,URINE 0.2 mg/dL (0.2-1.0)
[2022-05-08] MEDS: INSULIN HUMULIN R 100 UNIT/ML 3ML SQ SCH (21:00)
[2022-05-09] VITALS (10 sets, daily range): BP systolic 127–178; BP diastolic 50–76
[2022-05-09 05:18] LABS: BASOPHILS % (AUTO) 0.6 % (0.0-5.0); EOSINOPHILS % (AUTO) 0.6 % (0.0-8.0); LYMPHOCYTES % (AUTO) 20.6 % (21.0-51.0); MEAN CORPUSCULAR HEMOGLOBIN 30.4 pg (27.0-33.0); MEAN CORPUSCULAR HGB CONC 33.2 g/dL (32.0-36.0); MEAN CORPUSCULAR VOLUME 91.6 fL (79-99); MONOCYTES % (AUTO) 8.3 % (3.0-13.0); NEUTROPHILS % (AUTO) 68.6 % (40.0-77.0); PLATELET COUNT (AUTO) 154 K/uL (130-400); RED BLOOD CELL COUNT(AUTO) 4.04 MIL/uL (4.00-5.50); RED CELL DISTRIBUTION WIDTH 13.9 % (11.0-15.5); WHITE BLOOD COUNT (AUTO) 6.3 K/uL (4.8-10.8)
[2022-05-09 05:58] LABS: CREATININE 1.1 mg/dL (0.5-1.5); MAGNESIUM 2.2 mg/dL (1.80-2.40); PHOSPHORUS 3.8 mg/dL (2.5-4.9); POTASSIUM 3.8 mmol/L (3.5-5.1); THYROID STIMULATING HORMONE 1.27 uIU/mL (0.36-3.74)
[2022-05-09] MEDS: INSULIN HUMULIN R 100 UNIT/ML 3ML SQ SCH ×4 (07:30→20:18)
[2022-05-09] MEDS: POLYETHYLENE GLYCOL 3350 17 GM POWD.PACK PO SCH ×2 (08:13→08:22)
[2022-05-09] MEDS: PANTOPRAZOLE 40 MG TAB DR PO SCH (08:13)
[2022-05-09] MEDS: ASPIRIN 81MG CHEW TAB PO SCH (08:13)
[2022-05-09] MEDS: ENOXAPARIN SODIUM 40 MG/0.4 ML SYRINGE SQ SCH (08:14)
[2022-05-09 09:05] LABS: CREATININE 1.1 mg/dL (0.5-1.5); POTASSIUM 3.8 mmol/L (3.5-5.1)
[2022-05-09] MEDS ORDERED: REGADENOSON 0.4 MG/5 ML PF SYG IVP SCH (12:00)
[2022-05-09] MEDS ORDERED: Vitamin B Complex/Vit C/Folic Acid PO SCH (12:47)
[2022-05-09] MEDS ORDERED: NITROGLYCERIN 0.4 MG SL TAB SL SCH (13:00)
[2022-05-09] MEDS: 0.9%NACL 1000ML 1,000 ML IV SCH (13:30)
[2022-05-09] MEDS ORDERED: IOHEXOL 350 MG/ML 100ML INFUS..BTL IV ONE (13:44)
[2022-05-09] MEDS: RANOLAZINE 500 MG TAB.SR.12H PO SCH (20:17)
[2022-05-09] MEDS ORDERED: ATORVASTATIN 10 MG TABLET PO SCH (21:00)
[2022-05-09] MEDS ORDERED: LEVOCETIRIZINE DIHYDROCHLORIDE 5 MG PO SCH (21:00)
[2022-05-09] MEDS: ACEBUTOLOL HCL 400 MG PO SCH (21:00)
[2022-05-09] MEDS ORDERED: NON-FORMULARY MEDICATION 1 EACH (Levocetirizine Dihydrochloride (Xyzal) 5 MG) PO SCH (21:00)
[2022-05-10 03:51] VITALS: BP 172/73
[2022-05-10 03:56] LABS: HEMATOCRIT 35.6 % (36-48); MEAN CORPUSCULAR HEMOGLOBIN 30.7 pg (27.0-33.0); MEAN CORPUSCULAR HGB CONC 33.4 g/dL (32.0-36.0); RED BLOOD CELL COUNT(AUTO) 3.87 MIL/uL (4.00-5.50); RED CELL DISTRIBUTION WIDTH 14.1 % (11.0-15.5); WHITE BLOOD COUNT (AUTO) 6.1 K/uL (4.8-10.8)
[2022-05-10 04:19] LABS: CREATININE 1.1 mg/dL (0.5-1.5); PHOSPHORUS 3.7 mg/dL (2.5-4.9); POTASSIUM 3.5 mmol/L (3.5-5.1)
[2022-05-10] MEDS ORDERED: PANTOPRAZOLE 40 MG TAB DR PO SCH (07:30)
[2022-05-10] MEDS: INSULIN HUMULIN R 100 UNIT/ML 3ML SQ SCH (07:30)
[2022-05-10 08:00] VITALS: BP 163/73
[2022-05-10] MEDS ORDERED: ISOSORBIDE MONO 30MG SR TAB PO SCH (09:00)
[2022-05-10] MEDS: ACEBUTOLOL HCL 400 MG PO SCH (09:00)
[2022-05-10] MEDS ORDERED: FUROSEMIDE 20 MG TABLET PO SCH (09:00)
[2022-05-10] MEDS ORDERED: EZETIMIBE 10 MG TAB PO SCH (09:00)
[2022-05-10] MEDS ORDERED: AMLODIPINE 2.5 MG TAB PO SCH (09:00)
[2022-05-10] MEDS: 0.9%NACL 1000ML 1,000 ML IV SCH (09:30)
[2022-05-10] MEDS: PANTOPRAZOLE 40 MG TAB DR PO SCH (10:26)
[2022-05-10] MEDS: RANOLAZINE 500 MG TAB.SR.12H PO SCH (10:26)
[2022-05-10] MEDS: ASPIRIN 81MG CHEW TAB PO SCH (10:28)
[2022-05-10] MEDS: POLYETHYLENE GLYCOL 3350 17 GM POWD.PACK PO SCH (10:28)
[2022-05-10] MEDS: ENOXAPARIN SODIUM 40 MG/0.4 ML SYRINGE SQ SCH (10:28)
[2022-05-10 12:00] VITALS: BP 159/58
[2022-05-10 12:47] VITALS: BP 159/58
[2022-05-10] MEDS ORDERED: CLON0.1T PO (14:37)
== END 2022-05-10 15:15 | disposition home or self-care (01) ==
LOC: EDH 15:29 → EDHIP 17:09 → 4AH 18:19
PROVIDERS: ADMIT Internal Medicine; ATTEND Internal Medicine
DX: R07.89 Other chest pain (principal); I13.0 Hypertensive heart and chronic kidney disease with heart failure and stage 1 through stage 4 chronic kidney disease, or unspecified chronic kidney disease; E11.22 Type 2 diabetes mellitus with diabetic chronic kidney disease; N18.32 Chronic kidney disease, stage 3b; I50.9 Heart failure, unspecified; E11.65 Type 2 diabetes mellitus with hyperglycemia; E78.00 Pure hypercholesterolemia, unspecified; E86.9 Volume depletion, unspecified; I25.10 Atherosclerotic heart disease of native coronary artery without angina pectoris; I45.9 Conduction disorder, unspecified; I48.0 Paroxysmal atrial fibrillation; M81.0 Age-related osteoporosis without current pathological fracture; Q21.9 Congenital malformation of cardiac septum, unspecified; Z88.0 Allergy status to penicillin; Z79.84 Long term (current) use of oral hypoglycemic drugs; Z86.73 Personal history of transient ischemic attack (TIA), and cerebral infarction without residual deficits; Z90.710 Acquired absence of both cervix and uterus; Z95.0 Presence of cardiac pacemaker; Z95.1 Presence of aortocoronary bypass graft; Z95.5 Presence of coronary angioplasty implant and graft; Z79.899 Other long term (current) drug therapy
CPT/HCPCS: 96360; 96361 ×3; 99285; 82550 ×4; 83735 ×3; 83874 ×3; 84484 ×4; 80053; 83880; 85025 ×2; 85610; 85730; 82948 ×6; 81003; 36415 ×3; 71045; 93005 ×2; 96372 ×2; 84443; 84100 ×2; 80048 ×3; 85378; 71270; 93017; 78452; 93306; 93970; 96374; 85027; G0378 ×42; J1650 ×2; J2785; Q9967; A9500 ×2

== ENCOUNTER → 2022-10-23 | Outpatient (CLI) | payer OTHER ==
[~2022-10-23] MED LIST changes: -ACEB400C PO; +ALEN70TA80 PO; +AMLO-257 PO; -AMLO2.5T4 PO; +ASPI-1026 PO; +CLON0.1T PO; +FOLI0.8T22 PO; -LEVO-70 PO; +LINA5TAB PO; +[UNRECOGNIZED DRUG - CODE] PO
== END | disposition home or self-care (01) ==
LOC: SHCH 08:32
PROVIDERS: ATTEND Internal Medicine Cardiovascular Disease
DX: I10 Essential (primary) hypertension (principal)
CPT/HCPCS: 93975

== ENCOUNTER 2023-05-09 19:34 | Inpatient (IN) | payer OTHER ==
[~2023-05-09] VITALS: Ht 152.4 cm; Wt 63.2 kg
[~2023-05-09 19:34] MED LIST changes: +HYDR50CA PO; -LOSA100T58 PO; +LOSA100T59 PO
[2023-05-09] MEDS ORDERED: NITROGLYCERIN 50MG/D5W 250ML 1 BOT ONE (19:53)
[2023-05-09] MEDS ORDERED: ASPIRIN 325MG TAB ONE (19:53)
[2023-05-09] MEDS ORDERED: ENOXAPARIN SODIUM 60 MG/0.6 ML SQ ONE (20:00)
[2023-05-09] MEDS ORDERED: NITROGLYCERIN 50MG/D5W 250ML 250 BOT IV SCH (20:00)
[2023-05-09] MEDS ORDERED: ASPIRIN 81MG CHEW TAB PO ONE (20:00)
[2023-05-09] MEDS ORDERED: ASPIRIN 325MG TAB PO ONE (20:30)
[2023-05-09 20:36] LABS: BASOPHILS # (AUTO) 0.03 K/uL (0.00-0.20); BASOPHILS % (AUTO) 0.3 % (0.0-5.0); HEMATOCRIT 38.3 % (36-48); IMMATURE GRANULOCYTE ABSOLUTE 0.14 K/uL (0-1); LYMPHOCYTES # (AUTO) 1.3 K/uL (1.0-4.8); LYMPHOCYTES % (AUTO) 14.6 % (21.0-51.0); MEAN CORPUSCULAR HEMOGLOBIN 29.1 pg (27.0-33.0); MEAN CORPUSCULAR HGB CONC 32.6 g/dL (32.0-36.0); MEAN CORPUSCULAR VOLUME 89.3 fL (79-99); MONOCYTES # (AUTO) 0.7 K/uL (0.1-1.0); MONOCYTES % (AUTO) 8.4 % (3.0-13.0); NEUTROPHILS # (AUTO) 6.5 K/uL (1.8-7.7); NEUTROPHILS % (AUTO) 75.1 % (40.0-77.0); PLATELET COUNT (AUTO) 195 K/uL (130-400); RED BLOOD CELL COUNT(AUTO) 4.29 MIL/uL (4.00-5.50); RED CELL DISTRIBUTION WIDTH 14.6 % (11.0-15.5); WHITE BLOOD COUNT (AUTO) 8.6 K/uL (4.8-10.8)
[2023-05-09 20:45] LABS: POTASSIUM 4.1 mmol/L (3.5-5.1)
[2023-05-09 20:55] LABS: BILIRUBIN,TOTAL 0.4 mg/dL (0.2-1.0); TOTAL PROTEIN, SERUM 7.3 g/dL (6.0-8.3)
[2023-05-09 21:07] LABS: B-TYPE NATRIURETIC PEPTIDE 297 pg/mL (0-100)
[2023-05-09] MEDS ORDERED: ACETAMINOPHEN 325 MG TAB PO PRN (23:30)
[2023-05-09] MEDS ORDERED: MORPHINE 2 MG SYG IVP PRN (23:30)
[2023-05-09] MEDS ORDERED: KETOROLAC 10 MG TABLET PO PRN (23:30)
[2023-05-09] MEDS ORDERED: ALBUTEROL 0.083% 2.5 MG/3 ML INH IH PRN (23:30)
[2023-05-09] MEDS: PHARMACY COMMUNICATION MISC SCH (23:30)
[2023-05-09] MEDS ORDERED: HYDROCODONE/ACETAMINOPHEN 5/325 MG TAB PO PRN (23:30)
[2023-05-10] VITALS (113 sets, daily range): BP systolic 96–176; BP diastolic 42–107; PULSE 70–90; RESP 7–31; O2SAT 96–99
[2023-05-10] MEDS ORDERED: NICARDIPINE 25MG INJ IV ONE (00:01)
[2023-05-10] MEDS: NICARDIPINE 25MG INJ 25 MG in 0.9% NACL 250ML 240 ML IV SCH ×2 (00:14→07:14)
[2023-05-10] MEDS: HYDRALAZINE 20MG/ML VIAL IV PRN (00:14)
[2023-05-10] MEDS ORDERED: PIND10TA2 PO (02:03)
[2023-05-10] MEDS ORDERED: APIX5TAB PO (02:03)
[2023-05-10 05:26] LABS: BASOPHILS # (AUTO) 0.05 K/uL (0.00-0.20); BASOPHILS % (AUTO) 0.7 % (0.0-5.0); EOSINOPHILS # (AUTO) 0.02 K/uL (0.00-0.70); EOSINOPHILS % (AUTO) 0.3 % (0.0-8.0); HEMATOCRIT 36.3 % (36-48); IMMATURE GRANULOCYTE ABSOLUTE 0.09 K/uL (0-1); LYMPHOCYTES # (AUTO) 1.7 K/uL (1.0-4.8); LYMPHOCYTES % (AUTO) 23.5 % (21.0-51.0); MEAN CORPUSCULAR HEMOGLOBIN 29.8 pg (27.0-33.0); MEAN CORPUSCULAR HGB CONC 33.3 g/dL (32.0-36.0); MEAN CORPUSCULAR VOLUME 89.4 fL (79-99); MONOCYTES # (AUTO) 0.9 K/uL (0.1-1.0); MONOCYTES % (AUTO) 11.6 % (3.0-13.0); NEUTROPHILS # (AUTO) 4.6 K/uL (1.8-7.7); NEUTROPHILS % (AUTO) 62.7 % (40.0-77.0); PLATELET COUNT (AUTO) 181 K/uL (130-400); RED BLOOD CELL COUNT(AUTO) 4.06 MIL/uL (4.00-5.50); RED CELL DISTRIBUTION WIDTH 14.7 % (11.0-15.5); WHITE BLOOD COUNT (AUTO) 7.3 K/uL (4.8-10.8)
[2023-05-10] MEDS: PHARMACY COMMUNICATION MISC SCH (05:30)
[2023-05-10 05:58] LABS: ALBUMIN 3.5 g/dL (3.5-5.0); BILIRUBIN,TOTAL 0.4 mg/dL (0.2-1.0); CREATININE 0.9 mg/dL (0.5-1.5); MAGNESIUM 2.2 mg/dL (1.80-2.40); POTASSIUM 3.5 mmol/L (3.5-5.1); TOTAL PROTEIN, SERUM 6.2 g/dL (6.0-8.3)
[2023-05-10] MEDS ORDERED: FAMOTIDINE 20MG VIAL IV SCH (09:00)
[2023-05-10] MEDS ORDERED: PHARMACY COMMUNICATION MISC SCH (11:30)
[2023-05-10] MEDS ORDERED: NON-FORMULARY MEDICATION 1 EACH (Alendronate Sodium 70 MG) PO SCH (11:30)
[2023-05-10] MEDS ORDERED: HYDROXYZINE PAMOATE 50 MG PO PRN (11:30)
[2023-05-10] MEDS ORDERED: PINDOLOL 5 MG TAB PO SCH (12:00)
[2023-05-10] MEDS ORDERED: ISOSORBIDE MONO 60MG SR TAB PO SCH (12:30)
[2023-05-10] MEDS ORDERED: LOSARTAN 100 MG TABLET PO SCH (12:30)
[2023-05-10] MEDS ORDERED: HYDROXYZINE 25 MG TABLET PO PRN (12:30)
[2023-05-10] MEDS ORDERED: RANOLAZINE 500 MG TAB.SR.12H PO PRN (12:30)
[2023-05-10] MEDS: FAMOTIDINE 20MG VIAL IV SCH ×2 (12:32→20:06)
[2023-05-10] MEDS ORDERED: KCL 20 MEQ ERTAB PO ONE (18:53)
[2023-05-10] MEDS ORDERED: POTASSIUM CHLORIDE 10% ELIXIR 20 MEQ/15 ML UDCUP PO PRN (19:00)
[2023-05-10] MEDS ORDERED: POTASSIUM CHLORIDE 20MEQ/100ML 100 ML IV PRN (19:00)
[2023-05-10] MEDS ORDERED: KCL 20 MEQ ERTAB PO PRN (19:00)
[2023-05-10] MEDS: RANOLAZINE 500 MG TAB.SR.12H PO SCH (20:05)
[2023-05-10] MEDS: APIXABAN 5 MG TABLET PO SCH (20:05)
[2023-05-10] MEDS: ATORVASTATIN 10 MG TABLET PO SCH (20:06)
[2023-05-10] MEDS: PINDOLOL 5 MG TAB PO SCH (20:07)
[2023-05-10] MEDS ORDERED: PINDOLOL PO SCH (21:00)
[2023-05-11] VITALS: BP 142/67; PULSE 76; RESP 16
[2023-05-11 00:30] VITALS: BP 130/67; PULSE 73; RESP 15
[2023-05-11 01:00] VITALS: BP 160/84; PULSE 76; RESP 24
[2023-05-11] MEDS: HYDRALAZINE 20MG/ML VIAL IV PRN (01:04)
[2023-05-11] MEDS: LOSARTAN 100 MG TABLET PO SCH (09:00)
[2023-05-11] MEDS: FAMOTIDINE 20MG VIAL IV SCH ×2 (09:00→21:00)
[2023-05-11] MEDS: EZETIMIBE 10 MG TAB PO SCH (09:00)
[2023-05-11] MEDS: APIXABAN 5 MG TABLET PO SCH ×2 (09:00→21:00)
[2023-05-11] MEDS: PINDOLOL 5 MG TAB PO SCH ×2 (09:00→21:00)
[2023-05-11] MEDS: RANOLAZINE 500 MG TAB.SR.12H PO SCH ×2 (09:00→21:00)
[2023-05-11] MEDS: FUROSEMIDE 20 MG TABLET PO SCH (09:00)
[2023-05-11] MEDS: ISOSORBIDE MONO 60MG SR TAB PO SCH (09:00)
[2023-05-11] MEDS ORDERED: ASPIRIN 81MG CHEW TAB ONE (17:31)
[2023-05-11] MEDS: ATORVASTATIN 10 MG TABLET PO SCH (21:00)
[2023-05-12] VITALS (7 sets, daily range): BP systolic 115–162; BP diastolic 56–79; PULSE 74–80; RESP 16–18; O2SAT 97–98
[2023-05-12 00:35] LABS: CREATININE 1.2 mg/dL (0.5-1.5); MAGNESIUM 2.3 mg/dL (1.80-2.40); POTASSIUM 4.1 mmol/L (3.5-5.1)
[2023-05-12] MEDS: HYDRALAZINE 20MG/ML VIAL IV PRN (04:08)
[2023-05-12 04:47] LABS: HEMATOCRIT 40.7 % (36-48); MEAN CORPUSCULAR HEMOGLOBIN 29.8 pg (27.0-33.0); MEAN CORPUSCULAR HGB CONC 32.9 g/dL (32.0-36.0); MEAN CORPUSCULAR VOLUME 90.4 fL (79-99); RED BLOOD CELL COUNT(AUTO) 4.5 MIL/uL (4.00-5.50); RED CELL DISTRIBUTION WIDTH 15.1 % (11.0-15.5); WHITE BLOOD COUNT (AUTO) 7.6 K/uL (4.8-10.8)
[2023-05-12 04:55] LABS: ALBUMIN 3.1 g/dL (3.5-5.0); BILIRUBIN,TOTAL 0.4 mg/dL (0.2-1.0); CREATININE 1.3 mg/dL (0.5-1.5); MAGNESIUM 2.2 mg/dL (1.80-2.40); PHOSPHORUS 4.3 mg/dL (2.5-4.9); POTASSIUM 3.9 mmol/L (3.5-5.1)
[2023-05-12] MEDS ORDERED: REGADENOSON 0.4 MG/5 ML PF SYG IVP SCH (07:30)
[2023-05-12] MEDS ORDERED: FAMOTIDINE 20MG TAB PO SCH (09:00)
[2023-05-12] MEDS ORDERED: ASPIRIN 81 MG EC TAB PO SCH (09:00)
[2023-05-12] MEDS: RANOLAZINE 500 MG TAB.SR.12H PO SCH (09:33)
[2023-05-12] MEDS: FUROSEMIDE 20 MG TABLET PO SCH (09:33)
[2023-05-12] MEDS: LOSARTAN 100 MG TABLET PO SCH (09:33)
[2023-05-12] MEDS: EZETIMIBE 10 MG TAB PO SCH (09:34)
[2023-05-12] MEDS: APIXABAN 5 MG TABLET PO SCH (09:34)
[2023-05-12] MEDS: ISOSORBIDE MONO 60MG SR TAB PO SCH (09:34)
[2023-05-12] MEDS: PINDOLOL 5 MG TAB PO SCH (09:35)
[2023-05-13] MEDS ORDERED: ALENDRONATE SODIUM 35 MG TAB PO SCH (06:30)
[2023-05-13 14:23] LABS: BASOPHILS # (AUTO) 0.05 K/uL (0.00-0.20); BASOPHILS % (AUTO) 0.7 % (0.0-5.0); EOSINOPHILS # (AUTO) 0.12 K/uL (0.00-0.70); EOSINOPHILS % (AUTO) 1.7 % (0.0-8.0); HEMATOCRIT 41.4 % (36-48); IMMATURE GRANULOCYTE ABSOLUTE 0.12 K/uL (0-1); LYMPHOCYTES # (AUTO) 1.4 K/uL (1.0-4.8); LYMPHOCYTES % (AUTO) 18.7 % (21.0-51.0); MEAN CORPUSCULAR HEMOGLOBIN 29.3 pg (27.0-33.0); MEAN CORPUSCULAR HGB CONC 32.4 g/dL (32.0-36.0); MEAN CORPUSCULAR VOLUME 90.6 fL (79-99); MONOCYTES # (AUTO) 0.8 K/uL (0.1-1.0); MONOCYTES % (AUTO) 10.7 % (3.0-13.0); NEUTROPHILS # (AUTO) 4.8 K/uL (1.8-7.7); NEUTROPHILS % (AUTO) 66.5 % (40.0-77.0); PLATELET COUNT (AUTO) 198 K/uL (130-400); RED BLOOD CELL COUNT(AUTO) 4.57 MIL/uL (4.00-5.50); WHITE BLOOD COUNT (AUTO) 7.2 K/uL (4.8-10.8)
== END 2023-05-12 21:15 | disposition home or self-care (01) | DRG 305 ==
LOC: EDH 19:34 → OBSVTOIN 23:08 → EDHIP 23:08 → 2CH 05-10 01:01 → 3CH 05-12 01:13
PROVIDERS: ADMIT Internal Medicine; ATTEND Internal Medicine
DX: I16.0 Hypertensive urgency (principal); I25.110 Atherosclerotic heart disease of native coronary artery with unstable angina pectoris; I48.20 Chronic atrial fibrillation, unspecified; N18.32 Chronic kidney disease, stage 3b; E11.22 Type 2 diabetes mellitus with diabetic chronic kidney disease; M81.0 Age-related osteoporosis without current pathological fracture; E78.00 Pure hypercholesterolemia, unspecified; I12.9 Hypertensive chronic kidney disease with stage 1 through stage 4 chronic kidney disease, or unspecified chronic kidney disease; I25.2 Old myocardial infarction; Z86.73 Personal history of transient ischemic attack (TIA), and cerebral infarction without residual deficits; Z79.01 Long term (current) use of anticoagulants; Z88.0 Allergy status to penicillin; Z88.5 Allergy status to narcotic agent; Z95.0 Presence of cardiac pacemaker; Z95.1 Presence of aortocoronary bypass graft
CPT/HCPCS: 36415; 71045; 78452; 80048; 80053; 82140; 82550; 82948; 83605; 83735; 83880; 84100; 84145; 84484; 85025; 85027; 93005; 93017; 93306; 96374; A9500; G0378; J0360; J2785; J3490; J7050

== ENCOUNTER → 2023-05-26 | Outpatient (CLI) | payer OTHER ==
[~2023-05-26] MED LIST changes: -AMLO-257 PO; +APIX5TAB PO; -ASPI-1026 PO; -FOLI0.8T22 PO; -LEVO5TAB29 PO; +PIND10TA2 PO; -[UNRECOGNIZED DRUG - CODE] PO
[2023-05-26 12:22] LABS: APPEARANCE,URINE CLEAR (CLEAR); BASOPHILS # (AUTO) 0.04 K/uL (0.00-0.20); BASOPHILS % (AUTO) 0.7 % (0.0-5.0); BILIRUBIN,URINE NEGATIVE (NEGATIVE); COLOR,URINE LIGHT-YELLOW (YELLOW); EOSINOPHILS # (AUTO) 0.13 K/uL (0.00-0.70); EOSINOPHILS % (AUTO) 2.2 % (0.0-8.0); GLUCOSE, URINE (UA) NEGATIVE (NEGATIVE); HEMATOCRIT 38.3 % (36-48); IMMATURE GRANULOCYTE ABSOLUTE 0.06 K/uL (0-1); KETONES,URINE NEGATIVE (NEGATIVE); LEUKOCYTE ESTERASE ,URINE NEGATIVE Leu/uL (NEGATIVE); LYMPHOCYTES # (AUTO) 0.9 K/uL (1.0-4.8); LYMPHOCYTES % (AUTO) 14.7 % (21.0-51.0); MEAN CORPUSCULAR HEMOGLOBIN 29.9 pg (27.0-33.0); MEAN CORPUSCULAR HGB CONC 32.4 g/dL (32.0-36.0); MEAN CORPUSCULAR VOLUME 92.3 fL (79-99); MONOCYTES # (AUTO) 0.6 K/uL (0.1-1.0); MONOCYTES % (AUTO) 9.2 % (3.0-13.0); NEUTROPHILS # (AUTO) 4.3 K/uL (1.8-7.7); NEUTROPHILS % (AUTO) 72.2 % (40.0-77.0); NITRATE,URINE NEGATIVE (NEGATIVE); OCCULT BLOOD,URINE NEGATIVE (NEGATIVE); PH,URINE 6.5 (5.0-8.0); PLATELET COUNT (AUTO) 178 K/uL (130-400); PROTEIN,URINE NEGATIVE (NEGATIVE); RED BLOOD CELL COUNT(AUTO) 4.15 MIL/uL (4.00-5.50); RED CELL DISTRIBUTION WIDTH 14.6 % (11.0-15.5); UROBILINOGEN,URINE 0.2 mg/dL (0.2-1.0)
[2023-05-26 12:23] LABS: ADD UA MICROSCOPIC NO
[2023-05-26 13:06] LABS: T4 (THYROXINE) 9.7 ug/dL (4.7-13.3); THYROID STIMULATING HORMONE 1.97 uIU/mL (0.36-3.74)
== END | disposition home or self-care (01) ==
LOC: LAB 10:25
PROVIDERS: ATTEND Internal Medicine Cardiovascular Disease
DX: E78.5 Hyperlipidemia, unspecified (principal)
CPT/HCPCS: 36415; 81003; 84436; 84443; 84479; 85025

== ENCOUNTER → 2023-07-10 | Outpatient (CLI) | payer OTHER | END | disposition home or self-care (01) | LOC: SHCH 10:00 | PROVIDERS: ATTEND Internal Medicine Cardiovascular Disease | DX: I70.1 Atherosclerosis of renal artery (principal) | CPT/HCPCS: 93975 ==

== ENCOUNTER → 2023-08-13 | Outpatient (CLI) | payer OTHER ==
[2023-08-13 16:19] LABS: CREATININE 0.9 mg/dL (0.5-1.5); POTASSIUM 4.1 mmol/L (3.5-5.1)
== END | disposition home or self-care (01) ==
LOC: LAB 13:02
PROVIDERS: ATTEND Internal Medicine Cardiovascular Disease
DX: I10 Essential (primary) hypertension (principal)
CPT/HCPCS: 36415; 80048

== ENCOUNTER → 2023-09-10 | Outpatient (CLI) | payer OTHER ==
[2023-09-10 16:23] LABS: BASOPHILS # (AUTO) 0.04 K/uL (0.00-0.20); BASOPHILS % (AUTO) 0.7 % (0.0-5.0); EOSINOPHILS # (AUTO) 0.09 K/uL (0.00-0.70); EOSINOPHILS % (AUTO) 1.6 % (0.0-8.0); HEMATOCRIT 36.8 % (36-48); IMMATURE GRANULOCYTE ABSOLUTE 0.09 K/uL (0-1); LYMPHOCYTES # (AUTO) 1.1 K/uL (1.0-4.8); LYMPHOCYTES % (AUTO) 19.2 % (21.0-51.0); MEAN CORPUSCULAR HEMOGLOBIN 31.4 pg (27.0-33.0); MEAN CORPUSCULAR HGB CONC 32.9 g/dL (32.0-36.0); MEAN CORPUSCULAR VOLUME 95.6 fL (79-99); MONOCYTES # (AUTO) 0.6 K/uL (0.1-1.0); NEUTROPHILS # (AUTO) 3.6 K/uL (1.8-7.7); NEUTROPHILS % (AUTO) 65.9 % (40.0-77.0); PLATELET COUNT (AUTO) 178 K/uL (130-400); RED BLOOD CELL COUNT(AUTO) 3.85 MIL/uL (4.00-5.50); RED CELL DISTRIBUTION WIDTH 14.5 % (11.0-15.5); WHITE BLOOD COUNT (AUTO) 5.5 K/uL (4.8-10.8)
[2023-09-10 16:38] LABS: POTASSIUM 4.3 mmol/L (3.5-5.1)
== END | disposition home or self-care (01) ==
LOC: LAB 13:38
PROVIDERS: ATTEND Internal Medicine Cardiovascular Disease
DX: I47.19 Other supraventricular tachycardia (principal)
CPT/HCPCS: 36415; 80048; 85025

== ENCOUNTER → 2023-10-10 | Outpatient (CLI) | payer OTHER ==
[2023-10-10 12:29] LABS: BASOPHILS # (AUTO) 0.05 K/uL (0.00-0.20); BASOPHILS % (AUTO) 0.8 % (0.0-5.0); EOSINOPHILS # (AUTO) 0.11 K/uL (0.00-0.70); EOSINOPHILS % (AUTO) 1.8 % (0.0-8.0); HEMATOCRIT 39.1 % (36-48); IMMATURE GRANULOCYTE ABSOLUTE 0.09 K/uL (0-1); LYMPHOCYTES # (AUTO) 0.9 K/uL (1.0-4.8); LYMPHOCYTES % (AUTO) 14.3 % (21.0-51.0); MEAN CORPUSCULAR HEMOGLOBIN 32.3 pg (27.0-33.0); MEAN CORPUSCULAR HGB CONC 33.2 g/dL (32.0-36.0); MONOCYTES # (AUTO) 0.5 K/uL (0.1-1.0); NEUTROPHILS # (AUTO) 4.4 K/uL (1.8-7.7); NEUTROPHILS % (AUTO) 72.6 % (40.0-77.0); PLATELET COUNT (AUTO) 183 K/uL (130-400); RED BLOOD CELL COUNT(AUTO) 4.03 MIL/uL (4.00-5.50); RED CELL DISTRIBUTION WIDTH 13.8 % (11.0-15.5)
[2023-10-10 12:37] LABS: CREATININE 0.8 mg/dL (0.5-1.5); POTASSIUM 4.1 mmol/L (3.5-5.1)
== END | disposition home or self-care (01) ==
LOC: LAB 08:20
PROVIDERS: ATTEND Internal Medicine Cardiovascular Disease
DX: I25.10 Atherosclerotic heart disease of native coronary artery without angina pectoris (principal)
CPT/HCPCS: 36415; 80048; 85025

== ENCOUNTER → 2023-12-08 | Outpatient (CLI) | payer OTHER ==
[2023-12-08 12:31] LABS: POTASSIUM 4.9 mmol/L (3.5-5.1)
== END | disposition home or self-care (01) ==
LOC: LAB 10:00
PROVIDERS: ATTEND Internal Medicine Cardiovascular Disease
DX: I65.29 Occlusion and stenosis of unspecified carotid artery (principal)
CPT/HCPCS: 36415; 80048

== ENCOUNTER → 2023-12-22 | Outpatient (CLI) | payer OTHER ==
[2023-12-22 12:41] LABS: CREATININE 1.1 mg/dL (0.5-1.0); POTASSIUM 4.6 mmol/L (3.5-5.1)
== END | disposition home or self-care (01) ==
LOC: LAB 09:30
PROVIDERS: ATTEND Internal Medicine Cardiovascular Disease
DX: I65.29 Occlusion and stenosis of unspecified carotid artery (principal)
CPT/HCPCS: 36415; 80048

== ENCOUNTER → 2024-04-21 | Outpatient (CLI) | payer OTHER ==
[~2024-04-21] MED LIST changes: +NITR100C4 PO; +ONDA-243 PO
== END | disposition home or self-care (01) ==
LOC: RAH 11:28
PROVIDERS: ATTEND Family Medicine
DX: N28.1 Cyst of kidney, acquired (principal); N39.0 Urinary tract infection, site not specified; Z87.442 Personal history of urinary calculi
CPT/HCPCS: 76770

== ENCOUNTER 2024-04-22 12:49 | Emergency (ER) | payer OTHER ==
[~2024-04-22] VITALS: Ht 154.9 cm; Wt 62.6 kg
[~2024-04-22 12:49] MED LIST changes: -NITR100C4 PO; -ONDA-243 PO
[2024-04-22 13:46] LABS: APPEARANCE,URINE CLEAR (CLEAR); BILIRUBIN,URINE NEGATIVE (NEGATIVE); COLOR,URINE DARK-YELLOW (YELLOW); GLUCOSE, URINE (UA) NEGATIVE (NEGATIVE); KETONES,URINE NEGATIVE (NEGATIVE); LEUKOCYTE ESTERASE ,URINE 250 Leu/uL (NEGATIVE); NITRATE,URINE NEGATIVE (NEGATIVE); OCCULT BLOOD,URINE NEGATIVE (NEGATIVE); PH,URINE 6.5 (5.0-8.0); PROTEIN,URINE 70 mg/dL (NEGATIVE); UROBILINOGEN,URINE 0.2 mg/dL (0.2-1.0)
[2024-04-22 14:13] LABS: ADD UA MICROSCOPIC YES
[2024-04-22 14:23] LABS: BACTERIA,URINE RARE /HPF (None Seen); MUCUS,URINE RARE LPF (None Seen); NON-SQUAMOUS EPITHELIAL CELL 1 /HPF (0-2); RBC,URINE 0-1 /HPF (0-1); SQUAMOUS EPITHELIAL CELL,UR RARE /HPF (0-2)
[2024-04-22] MEDS: ONDANSETRON ODT 4MG TAB SL ONE (14:26)
[2024-04-22] MEDS ORDERED: ACETAMINOPHEN WITH CODEINE 1 TAB TAB PO ONE (14:30)
[2024-04-22 15:27] LABS: BASOPHILS # (AUTO) 0.03 K/uL (0.00-0.20); BASOPHILS % (AUTO) 0.5 % (0.0-5.0); EOSINOPHILS # (AUTO) 0.08 K/uL (0.00-0.70); EOSINOPHILS % (AUTO) 1.2 % (0.0-8.0); HEMATOCRIT 36.2 % (36-48); IMMATURE GRANULOCYTE ABSOLUTE 0.05 K/uL (0-1); LYMPHOCYTES # (AUTO) 0.9 K/uL (1.0-4.8); MEAN CORPUSCULAR HEMOGLOBIN 31.8 pg (27.0-33.0); MEAN CORPUSCULAR HGB CONC 33.4 g/dL (32.0-36.0); MEAN CORPUSCULAR VOLUME 95.3 fL (79-99); MONOCYTES # (AUTO) 0.5 K/uL (0.1-1.0); MONOCYTES % (AUTO) 7.8 % (3.0-13.0); NEUTROPHILS # (AUTO) 4.9 K/uL (1.8-7.7); NEUTROPHILS % (AUTO) 75.7 % (40.0-77.0); PLATELET COUNT (AUTO) 175 K/uL (130-400); RED CELL DISTRIBUTION WIDTH 13.2 % (11.0-15.5); WHITE BLOOD COUNT (AUTO) 6.5 K/uL (4.8-10.8)
[2024-04-22 15:36] LABS: CREATININE 1.4 mg/dL (0.5-1.0); POTASSIUM 4.1 mmol/L (3.5-5.1)
[2024-04-22] MEDS: NITROFURANTOIN MONOHYD/M-CRYST 100 MG CAPSULE PO ONE (15:49)
[2024-04-22] MEDS ORDERED: NITR100C4 PO (15:55)
[2024-04-22] MEDS ORDERED: ONDA-243 PO (15:55)
[2024-04-22] MEDS: 0.9%NACL 1000ML 1,000 ML IV ONE (16:02)
[2024-04-22 16:34] VITALS: BP 131/60; PULSE 70; RESP 16; O2SAT 99
== END 2024-04-22 16:41 | disposition home or self-care (01) ==
LOC: EDH 12:49
DX: N39.0 Urinary tract infection, site not specified (principal); R79.89 Other specified abnormal findings of blood chemistry; E78.00 Pure hypercholesterolemia, unspecified; I10 Essential (primary) hypertension; Z79.01 Long term (current) use of anticoagulants; Z79.84 Long term (current) use of oral hypoglycemic drugs; Z79.899 Other long term (current) drug therapy; Z88.0 Allergy status to penicillin; Z88.5 Allergy status to narcotic agent
CPT/HCPCS: 99284; 74176; 96360; 80048; 85025; 87086; 81001; 36415; J7030

== ENCOUNTER 2024-05-28 16:47 | Observation (INO) | payer OTHER ==
[~2024-05-28] VITALS: Ht 152.4 cm; Wt 61.7 kg
[~2024-05-28 16:47] MED LIST changes: +NITR100C4 PO; +ONDA-243 PO
[2024-05-28 17:13] LABS: BASOPHILS # (AUTO) 0.02 K/uL (0.00-0.20); BASOPHILS % (AUTO) 0.4 % (0.0-5.0); EOSINOPHILS # (AUTO) 0.05 K/uL (0.00-0.70); EOSINOPHILS % (AUTO) 0.9 % (0.0-8.0); HEMATOCRIT 35.9 % (36-48); IMMATURE GRANULOCYTE ABSOLUTE 0.04 K/uL (0-1); LYMPHOCYTES # (AUTO) 0.9 K/uL (1.0-4.8); LYMPHOCYTES % (AUTO) 16.9 % (21.0-51.0); MEAN CORPUSCULAR HEMOGLOBIN 31.3 pg (27.0-33.0); MEAN CORPUSCULAR HGB CONC 33.7 g/dL (32.0-36.0); MEAN CORPUSCULAR VOLUME 92.8 fL (79-99); MONOCYTES # (AUTO) 0.4 K/uL (0.1-1.0); MONOCYTES % (AUTO) 7.9 % (3.0-13.0); NEUTROPHILS # (AUTO) 3.9 K/uL (1.8-7.7); NEUTROPHILS % (AUTO) 73.2 % (40.0-77.0); PLATELET COUNT (AUTO) 190 K/uL (130-400); RED BLOOD CELL COUNT(AUTO) 3.87 MIL/uL (4.00-5.50); RED CELL DISTRIBUTION WIDTH 13.2 % (11.0-15.5); WHITE BLOOD COUNT (AUTO) 5.3 K/uL (4.8-10.8)
[2024-05-28 17:24] LABS: INR 1.06 (0.85-1.15); PROTHROMBIN TIME 11.4 SEC (9.6-11.6)
[2024-05-28 17:25] LABS: CREATININE 1.4 mg/dL (0.5-1.0)
[2024-05-28 17:26] LABS: PARTIAL THROMBOPLASTIN TIME 29.6 SEC (26.3-35.5)
[2024-05-28] MEDS: ASPIRIN 325MG TAB PO ONE (18:27)
[2024-05-28] MEDS: atorVAStatin 40 MG TABLET PO ONE (18:27)
[2024-05-28] MEDS ORDERED: GLUCAGON 1MG KIT 1 MG ML IM PRN (20:30)
[2024-05-28] MEDS ORDERED: LACTULOSE 20 GM/30 ML UDCUP PO PRN (20:30)
[2024-05-28] MEDS ORDERED: ONDANSETRON 4MG INJ IVP PRN (20:30)
[2024-05-28] MEDS ORDERED: ALBUTEROL 0.083% 2.5 MG/3 ML INH IH PRN (20:30)
[2024-05-28] MEDS ORDERED: POTASSIUM CHLORIDE 10% ELIXIR 20 MEQ/15 ML UDCUP PO PRN (20:30)
[2024-05-28] MEDS ORDERED: DEXTROSE 50%-WATER 50 ML DISP.SYRIN IV PRN (20:30)
[2024-05-28] MEDS: PANTOPRAZOLE 40 MG/VIAL IVP ONE (20:32)
[2024-05-28 20:54] VITALS: PULSE 70; RESP 20; O2SAT 99
[2024-05-28] MEDS: 0.9%NACL 1000ML 1,000 ML IV SCH (20:58)
[2024-05-28] MEDS: doCUSate SODIUM 100 MG CAP PO SCH (20:58)
[2024-05-28] MEDS: NITROGLYCERIN 0.4 MG SL TAB SL PRN (20:59)
[2024-05-28] MEDS: INSULIN humuLIN R 100 UNIT/ML 3ML SQ SCH (21:00)
[2024-05-28] MEDS: 0.9% NACL 500ML IV.SOLN 500 ML IV STA (23:11)
[2024-05-28 23:20] VITALS: BP 147/67; PULSE 72; RESP 18; TEMP 98.1; O2SAT 95
[2024-05-29] VITALS (10 sets, daily range): BP systolic 147–171; BP diastolic 67–88; PULSE 70–85; RESP 18–20; TEMP 98–98.4; O2SAT 96–98
[2024-05-29] MEDS: acetaMINOPHEN 325 MG TAB PO PRN (00:02)
[2024-05-29 00:21] LABS: APPEARANCE,URINE CLEAR (CLEAR); BILIRUBIN,URINE NEGATIVE (NEGATIVE); COLOR,URINE LIGHT-YELLOW (YELLOW); GLUCOSE, URINE (UA) NEGATIVE (NEGATIVE); KETONES,URINE NEGATIVE (NEGATIVE); LEUKOCYTE ESTERASE ,URINE 25 Leu/uL (NEGATIVE); NITRATE,URINE NEGATIVE (NEGATIVE); OCCULT BLOOD,URINE NEGATIVE (NEGATIVE); PH,URINE 7.5 (5.0-8.0); PROTEIN,URINE NEGATIVE (NEGATIVE); UROBILINOGEN,URINE 0.2 mg/dL (0.2-1.0)
[2024-05-29 00:27] LABS: ADD UA MICROSCOPIC YES; RBC,URINE 0-1 /HPF (0-1); SQUAMOUS EPITHELIAL CELL,UR RARE /HPF (0-2)
[2024-05-29 01:00] LABS: CREATININE 1.1 mg/dL (0.5-1.0); POTASSIUM 3.7 mmol/L (3.5-5.1)
[2024-05-29] MEDS: KCL 20 MEQ ERTAB PO PRN (02:39)
[2024-05-29] MEDS ORDERED: IOHEXOL 350 MG/ML 100ML INFUS..BTL IV ONE (03:10)
[2024-05-29 06:48] LABS: BASOPHILS # (AUTO) 0.02 K/uL (0.00-0.20); BASOPHILS % (AUTO) 0.4 % (0.0-5.0); EOSINOPHILS # (AUTO) 0.06 K/uL (0.00-0.70); EOSINOPHILS % (AUTO) 1.1 % (0.0-8.0); HEMATOCRIT 32.7 % (36-48); IMMATURE GRANULOCYTE ABSOLUTE 0.01 K/uL (0-1); LYMPHOCYTES # (AUTO) 0.6 K/uL (1.0-4.8); LYMPHOCYTES % (AUTO) 10.7 % (21.0-51.0); MEAN CORPUSCULAR HEMOGLOBIN 31.3 pg (27.0-33.0); MEAN CORPUSCULAR HGB CONC 33.6 g/dL (32.0-36.0); MEAN CORPUSCULAR VOLUME 92.9 fL (79-99); MONOCYTES # (AUTO) 0.5 K/uL (0.1-1.0); MONOCYTES % (AUTO) 9.2 % (3.0-13.0); NEUTROPHILS # (AUTO) 4.2 K/uL (1.8-7.7); NEUTROPHILS % (AUTO) 78.4 % (40.0-77.0); PLATELET COUNT (AUTO) 157 K/uL (130-400); RED BLOOD CELL COUNT(AUTO) 3.52 MIL/uL (4.00-5.50); RED CELL DISTRIBUTION WIDTH 13.3 % (11.0-15.5); WHITE BLOOD COUNT (AUTO) 5.4 K/uL (4.8-10.8)
[2024-05-29 07:15] LABS: PHOSPHORUS 3.2 mg/dL (2.5-4.9); POTASSIUM 4.1 mmol/L (3.5-5.1); THYROID STIMULATING HORMONE 1.79 uIU/mL (0.36-3.74)
[2024-05-29 07:21] LABS: MAGNESIUM 1.7 mg/dL (1.80-2.40)
[2024-05-29] MEDS: ASPIRIN 81MG CHEW TAB PO SCH (09:38)
[2024-05-29] MEDS: MAGNESIUM 2GM PREMIX 50ML 50 ML IV PRN (09:39)
[2024-05-29] MEDS ORDERED: hydrOXYzine 25 MG TABLET PO PRN (16:00)
[2024-05-29] MEDS: LAbetaLOL 20MG SYG IV PRN (17:23)
[2024-05-29] MEDS: PINDOLOL PO SCH (19:28)
[2024-05-29] MEDS: RANOLAZINE 500 MG TAB.SR.12H PO SCH (19:50)
[2024-05-29] MEDS: APIXaban 5 MG TABLET PO SCH (19:51)
[2024-05-29] MEDS: atorVAStatin 10 MG TABLET PO SCH (19:51)
[2024-05-30] VITALS (10 sets, daily range): BP systolic 147–177; BP diastolic 57–83; PULSE 68–85; RESP 18–20; TEMP 97.7–98.4; O2SAT 96–97
[2024-05-30] MEDS: RANOLAZINE 500 MG TAB.SR.12H PO SCH (08:12)
[2024-05-30] MEDS: PANTOPRAZOLE 40 MG TAB DR PO SCH (08:12)
[2024-05-30] MEDS: LoSARTan 100 MG TABLET PO SCH (08:12)
[2024-05-30] MEDS: ISOSORBIDE MONO 30MG SR TAB PO SCH (08:13)
[2024-05-30] MEDS: furoSEMIDE 20 MG TABLET PO SCH (08:13)
[2024-05-30] MEDS: PERFLUTREN PROTEIN-A MICROSPHR 0.22 MG/ML VIAL IV ONE (14:00)
[2024-05-31 03:38] VITALS: BP 162/84; PULSE 73; RESP 20; TEMP 97.8
[2024-05-31 08:00] VITALS: BP 168/84; PULSE 85; RESP 18; TEMP 98.2
[2024-05-31 08:24] VITALS: PULSE 78; RESP 20; O2SAT 97
[2024-05-31] MEDS: hydrALAZine 25MG TABLET PO SCH (09:42)
[2024-05-31 10:26] VITALS: O2SAT 97
[2024-05-31 10:39] VITALS: O2SAT 96
[2024-05-31 12:00] VITALS: BP 122/59; PULSE 77; RESP 18; TEMP 98.6
[2024-05-31] MEDS ORDERED: HYDR25 PO (13:19)
[2024-05-31] MEDS ORDERED: atorVAStatin 20 MG TABLET PO SCH (21:00)
== END 2024-05-31 13:20 | disposition home or self-care (01) ==
LOC: EDH 16:47 → EDHIP 20:25 → 4CH 23:05
PROVIDERS: ADMIT Internal Medicine; ATTEND Internal Medicine
DX: R07.89 Other chest pain (principal); R11.0 Nausea; I13.0 Hypertensive heart and chronic kidney disease with heart failure and stage 1 through stage 4 chronic kidney disease, or unspecified chronic kidney disease; E11.22 Type 2 diabetes mellitus with diabetic chronic kidney disease; I50.32 Chronic diastolic (congestive) heart failure; N18.30 Chronic kidney disease, stage 3 unspecified; E87.1 Hypo-osmolality and hyponatremia; I25.10 Atherosclerotic heart disease of native coronary artery without angina pectoris; E78.00 Pure hypercholesterolemia, unspecified; I48.0 Paroxysmal atrial fibrillation; I49.3 Ventricular premature depolarization; I95.1 Orthostatic hypotension; N17.9 Acute kidney failure, unspecified; N39.0 Urinary tract infection, site not specified; Z79.01 Long term (current) use of anticoagulants; Z79.82 Long term (current) use of aspirin; Z79.899 Other long term (current) drug therapy; Z86.73 Personal history of transient ischemic attack (TIA), and cerebral infarction without residual deficits; Z88.0 Allergy status to penicillin; Z95.0 Presence of cardiac pacemaker; Z95.1 Presence of aortocoronary bypass graft; Z98.890 Other specified postprocedural states
CPT/HCPCS: 96361 ×2; 96375 ×2; 99285; 82550; 83735 ×3; 84484 ×4; 80048 ×3; 83880; 85025 ×2; 85378; 85610; 85730; 82948 ×11; 81001; 36415 ×3; 71045; 93005; 96365; 96366; 83036; 84443; 84100; 82330; 80061; 71270; 93306; G0378 ×63; J7030; J2470; J3475; Q9967; A4600; Q9956; C8924

== ENCOUNTER → 2024-07-14 | Outpatient (CLI) | payer OTHER ==
[~2024-07-14] MED LIST changes: -ALEN70TA80 PO; -CLON0.1T PO; -EZET10TA48 PO; +HYDR25 PO; -LINA5TAB PO; -NITR0.4T50 SL; -NITR100C4 PO; -ONDA-243 PO
[2024-07-14 12:23] LABS: CREATININE 1.1 mg/dL (0.5-1.0); POTASSIUM 4.2 mmol/L (3.5-5.1)
== END | disposition home or self-care (01) ==
LOC: LAB 09:06
PROVIDERS: ATTEND Internal Medicine Cardiovascular Disease
DX: I10 Essential (primary) hypertension (principal)
CPT/HCPCS: 36415; 80048

== ENCOUNTER → 2024-07-22 | Outpatient (CLI) | payer OTHER ==
[~2024-07-22] MED LIST changes: +IOHEXOL 350 MG/ML 100ML INFUS..BTL IV ONE; +metoPROLOL tartRATE 1 MG/ML 5ML VIAL IV ONE
== END | disposition home or self-care (01) ==
LOC: RAH 09:13
PROVIDERS: ATTEND Internal Medicine Cardiovascular Disease
DX: I25.10 Atherosclerotic heart disease of native coronary artery without angina pectoris (principal); M47.815 Spondylosis without myelopathy or radiculopathy, thoracolumbar region; Z95.1 Presence of aortocoronary bypass graft
CPT/HCPCS: 75574; J3490; Q9967